=== PATIENT | female | born 1995 | race Caucasian/White ===

== ENCOUNTER 2023-06-25 00:36 | Day surgery (SDC) | payer MEDICARE, SELFPAY ==
[2023-06-15 12:39] VITALS: BMI 19.4
--- NOTE | 2023-06-15 12:47 | PC.NURSE ---
Report to the Outpatient Waiting Room, entrance under the green pavilion located off [facility], at time 6:00 on date 06/25/23. Planned Procedure Time: 7:30. Time changes happen often and if your time is changed the preop area will call you the afternoon before. - You and your visitor will be asked to self-screen and do not enter if you have any COVID symptoms. - A mask is optional within the hospital at this time. Patients may have clear liquids (water, carbonated beverages, clear teas, apple juice) until 3 hours prior to surgery (4:30) with a maximum of 20 ounces. - No food from midnight until time of surgery Take the following medications with a SIP of water the morning of surgery: BUPROPION DO NOT STOP ANY OF YOUR OTHER PRESCRIPTION MEDICATIONS PRIOR TO SURGERY ?EXCEPT THE FOLLOWING Medications to discontinue per physician: N/A Date to take last dose: N/A Please no make-up, nail belarusian, hairspray, perfume, deodorant, or body powder the day of surgery. No jewelry (including any body piercings) or valuables the day of surgery, leave them at home. Please take a shower or bath the night before, or the morning of, surgery with an antibacterial soap. Wear comfortable, loose fitting clothing. - Jewelry must be removed prior to entering the operating room. Rings and piercings that are not removed may be cut off. - The hospital will not accept responsibility for valuables. - Please leave all valuables, including medications, at home the day of surgery. If you are going home after surgery, a licensed intermodal truck driver must drive you home. - NO public transportation without another adult if you receive anesthesia. - We recommend that an adult stay with you for 24 hours following discharge. - We also recommend that you do not drive, make important decision, drink alcoholic beverages, or take any drugs that were not prescribed by your health care provider for at least 24 hours after your discharge time. Follow any additional instructions given to you from your surgeon. If you or anyone in your household have experienced Covid symptoms in the past week, please notify your surgeon or the nurse liaison at the phone number below for possible testing. Telephone instructions given to ADDISON VAZQUEZ and asked if any additional questions and then verbalized understanding. Patient advised to call surgeon office or pre surgery nurse liaison [phone] if any additional questions.
--- NOTE | 2023-06-22 16:07 | P.HP_ITS ---
H&P: HPI History of Present Illness Date/Time: 06/22/23 16:07 Chief Complaint: The suspected uterine polyp Narrative: 28-year-old removed female the Depo-Provera with a regular excessive bleeding. She has a history of a polypectomy many years ago. Ultrasound was performed this removal to do an exam in the thickened tissue was seen consistent with probable recurrence of a polyp. She will undergo hysteroscopy dilatation curettage and polypectomy. Risks and benefits reviewed including inclusive of aspiration pneumonia, bleeding and transfusion, perforation injury to bowel, bladder, ureters, or other internal organs with need for open laparotomy. She received the ACOG handout entitled hysteroscopy as well as dilatation curettage. She had all questions answered. She asked to proceed [facility] Social History Social History Smoking status: Never smoker Alcohol intake: never Substance use: never Substance use type: does not use Living arrangements: with family Spiritual care concerns: No Meds Home Medications and Allergies Home Medications Medication Instructions Recorded Confirmed Type bupropion HCl 150 mg 24 hr tablet, 150 mg PO DAILY 06/15/23 06/15/23 History extended release medroxyprogesterone 150 mg/mL 150 mg IM [id number] 06/15/23 06/15/23 History intramuscular suspension Allergies Allergy/AdvReac Type Severity Reaction Status Date / Time chlorhexidine Allergy Intermediate RASH Verified 06/15/23 12:36 oxycodone Allergy Intermediate Vomiting Verified 06/15/23 12:36 Sulfa (Sulfonamide Allergy Mild HIVES Unverified 06/15/23 12:36 Antibiotics) Exam Const: General: cooperative and comfortable Nutritional Appearance: average body habitus Orientation/consciousness: oriented to person, oriented to place and oriented to time HENMT: Head: normal to inspection Resp: Effort & Inspection: normal respiratory effort Cardio: Rate: regular rate Rhythm: regular rhythm Heart sounds: S1 normal heart sound present and S2 normal heart sound present GI: Inspection: normal to inspection : External Female Exam: normal external appearance ( remainder of exam be done under Anesthesia) Assessment and Plan Assessment and plan (1) Excessive bleeding: Code(s): R58 - Hemorrhage, not elsewhere classified Status: Acute Plan hysteroscopy/ dilatation curettage/polypectomy
--- NOTE | 2023-06-25 06:33 | WPDHPUPDATE1 ---
History and Physical Update Update Date/Time: 06/25/23 06:33 History and Physical has been reviewed, including an updated exam of the patient. There are NO changes in the patient's condition. Risks, benefits, and alternatives have been discussed and questions answered. Patient agrees to proceed with procedure.
--- NOTE | 2023-06-25 06:46 | P.PNAN_ITS ---
Anes - Initial Pre Proc Eval Procedure: Operation Date: 06/25/23 07:30 Proposed Procedures p Hysteroscopy, Dilation and Curettage, Polypectomy - Idris Bunn MD Date/Time: 06/25/23 06:46 Surgeon: Idris Bunn MD Pre Op Diagnosis: irreg bleeding, uterine polyp Patient Data Age: 28 Gender: F Height: 1.63 m Weight: 51.3 kg Allergies Allergy/AdvReac Type Severity Reaction Status Date / Time chlorhexidine Allergy Intermediate RASH Verified 06/15/23 12:36 oxycodone Allergy Intermediate Vomiting Verified 06/15/23 12:36 Sulfa (Sulfonamide Allergy Mild HIVES Unverified 06/15/23 12:36 Antibiotics) Home Medications Medication Instructions Recorded Confirmed Type bupropion HCl 150 mg 24 hr tablet, 150 mg PO DAILY 06/15/23 06/15/23 History extended release medroxyprogesterone 150 mg/mL 150 mg IM [id number] 06/15/23 06/15/23 History intramuscular suspension ibuprofen 600 mg tablet 600 mg PO QID PRN pain #20 tabs 06/25/23 Rx Patient hx anesthesia problems: none Family hx anesthesia problems: none Results Review: All pre-operative results and documents have been reviewed as part of the pre- operative evaluation. [facility], [facility] Social History Social History Smoking status: Never smoker Alcohol intake: never Substance use: never Substance use type: does not use Living arrangements: with family Spiritual care concerns: No Anes - Eval Final PreProcedure Day of Procedure 06/25/23 06:46 Patient weight: normal Heart: regular rate and rhythm Lungs: clear to auscultation Airway: Mallampati scale class II Neurological: alert and oriented Last oral intake: >/= 8 hours ASA classification: II Emergent: no Anesthetic plan: proceed Anesthesia type and monitoring: general GIVS and standard monitoring Results Review: All pre-operative results and documents have been reviewed as part of the pre- operative evaluation Pt w mild CP, uses cane sometimes for stability. . Informed Consent: The patient's anesthetic plan and its attendant risks and benefits were discussed with the patient/family/POA. Questions were solicited and answers provided to the satisfaction of the patient/family/POA.
[2023-06-25 06:50] LABS: Hematocrit 42.8 % (37.0-47.0)
[2023-06-25 07:00] VITALS: BP 134/87; PULSE 109; RESP 20; TEMP 36.8; O2SAT 100
[2023-06-25] MEDS: ACETAMINOPHEN 500 MG TABLET 1000 MG PO (07:00)
[2023-06-25] MEDS: LACTATED RINGERS 1,000 ML 30 ML IV CONT (07:00)
[2023-06-25 07:18] LABS: Beta HCG Quantitative < 2.39 mIU/ML
[2023-06-25] MEDS: LIDOCAINE HCL 1% LOCAL INJ 10 ML VIAL INFILTRATE (07:40)
--- NOTE | 2023-06-25 07:49 | W.PM.PROC2 ---
Procedure Note - Detailed Date of Procedure 06/25/23 Pre-op Diagnosis irreg bleeding, uterine polyp Post-op Diagnosis Same Procedure Performed Hysteroscopy / polypectomy/dilatation curettage Surgeon Idris Bunn MD Anesthesia MAC and Local Indications this is a 20-year-old female with thickened endometrial when Findings 2 small stone looking pieces in the uterus with thickened endometrium Description of Procedure patient was prepped and draped in the normal sterile fashion placed in the dorsal lithotomy position. Under excellent IV sedation weighted speculum placed in posterior fornix. Anterior lip the cervix grasped with single-tooth tenaculum. 2.5cc 1% xylocaine anesthesia placed at 2, 4, 8, 10:00 a.m. of the cervix. Uterus sounded to 8cm. Serial dilatation with fragmented dilators performed followed by passage of the of the day hysteroscope system. Two phleboliths looking lesions were seen. These were removed with polyp forceps. The polypoid looking lesion was then scraped over the entire 360? with the prior rotator. The instruments withdrawn blood loss estimated 5cc. All sponge, needle, instrument counts were correct there were no immediate complications Estimated Blood Loss 5 Drains No Packing No Pathology Yes Complications No immediate complications Condition Stable Disposition PACU
[2023-06-25 07:51] VITALS: BP 111/84; PULSE 110; RESP 12; O2SAT 100
[2023-06-25 08:15] VITALS: BP 102/77; PULSE 85; RESP 20
[2023-06-25 08:45] VITALS: BP 121/79; PULSE 93; RESP 20
== END 2023-06-25 08:52 | disposition home or self-care (01) ==
PROVIDERS: Anesthesiology; PCP Family Medicine Adolescent Medicine; Visit Provider Obstetrics & Gynecology
PROC: 0U5B8ZZ Destruction of Endometrium, Via Natural or Artificial Opening Endoscopic (ICD-10-PCS; CPT 58563; principal; 2023-06-25 07:30)
DX: N93.9 Abnormal uterine and vaginal bleeding, unspecified (principal); N85.8 Other specified noninflammatory disorders of uterus
CPT/HCPCS: 58558; 36415; 84702; 85014; 85018; 88305; A9270; J2250; J2704; J3010; J7120

== ENCOUNTER 2024-05-14 15:00 | Inpatient (IN) | payer MEDICARE, SELFPAY ==
[2024-05-14] VITALS (13 sets, daily range): BP systolic 116–135; BP diastolic 71–89; PULSE 68–103; RESP 15–18; TEMP 36.2–37.1; O2SAT 98–100; BMI 23.6
--- NOTE | ~2024-05-14 | XR_ITS ---
EXAMINATION: XR abdomen/kub 1V DATE: 05/15/2024 08:27 INDICATION: Left ureteral stone. TECHNIQUE: A supine view of the abdomen on 2 radiographs was obtained. COMPARISON: CT abdomen and pelvis 05/14/2024 FINDINGS: There are no dilated loops of bowel. There is a 3 mm stone in right kidney. There is a 4 mm stone in proximal left ureter. There is contrast in the bladder. IMPRESSION: 1. 4 mm stone in proximal left ureter. 2. 3 mm right kidney stone. Reviewed, dictated and finalized at location B.
--- NOTE | ~2024-05-14 | CT_ITS ---
EXAMINATION: CT abdomen pelvis w con DATE: 05/14/2024 19:18 INDICATION: LOWER ABDOMINAL PAIN TECHNIQUE: Computed tomography (CT) of the abdomen and pelvis was performed with 100 mL Omnipaque-350 intravenous contrast. Automated exposure control and iterative reconstruction technique were employe d. The dose-length product was 280.58 mGy-cm. COMPARISON: None. FINDINGS: Lower thorax: Unremarkable Liver: Normal. Biliary/Gallbladder: Gallbladder is normal. No bile duct dilation. Pancreas: No mass or duct dilation. Spleen: Normal. Adrenals:No mass. Kidneys: Delayed left nephrogram. Mild left pelviectasis and caliectasis. 5 mm calcification at the l eft UPJ. Punctate bilateral nonobstructing calculi. No suspicious mass. No right hydronephrosis. GI tract: Small hiatal hernia. Linear hyperdense focus at the GE junction may represent a surgical cl ip from prior surgery or ingested material. Mild gastroesophageal and gastric wall edema. No small or large bowel dilation. Mild scattered areas of colonic wall edema. Appendix not confidently identifie d. No right lower quadrant inflammatory process. Diverticulosis without diverticulitis. Mesentery/Peritoneum: No ascites, mass, or free air. Retroperitoneum: No mass. Pelvis: Normal uterus and right ovary. Left ovary is not confidently identified.. Soft Tissues: Soft tissues and body wall unremarkable. Bones: No acute osseous finding. IMPRESSION: 5 mm left UPJ stone causing mild obstructive uropathy. Scattered areas of colonic wall edema may reflect infectious, inflammatory, or ischemic colitis. Reviewed, dictated and finalized at location K.
--- NOTE | ~2024-05-14 | XR_ITS ---
EXAMINATION: XR retrograde pyelo w/stent LT DATE: 05/16/2024 11:46 INDICATION: Left ureteral stone. TECHNIQUE: 3 intraoperative fluoroscopic views of the abdomen and pelvis were obtained. I was not pre sent. Fluoroscopy exposure time was 23 seconds. COMPARISON: CT abdomen and pelvis 05/14/2024 FINDINGS: The left-sided retrograde pyelogram is unremarkable. There is a left internal ureteral sten t in expected position. IMPRESSION: 1. Left internal ureteral stent in expected position. Reviewed, dictated and finalized at location B.
--- OUTSIDE RECORDS SUMMARY | 2024-05-14 15:03 | XMS_ITS | Continuity of Care Document ---
Author Organization [facility] Address [address] [place] [address] Phone Care Team Providers Care Second Worker Name Role Phone Cipriano Meyer Unavailable Unavailable Advance Directives Directive Yes / No Effective Date File Name No Information Encounters Encounter Description Practice Location Reason(s) For Visit Diagnoses Date Provider Providers Copied on Encounter [facility], [address] [place] [address] [address], [place], [place], [id number], [place] tel:[phone] [facility] No Information 0 1-200 4 Doisy Edward. [address] , [address], [place], [address], [place]. tel:[phone] Family History Family Member Type Diagnosis Age At Onset No Information Payers Payer name Insurance type Covered democrat ID Authoriza tion(s) No Information Social History Type Description Quantity Date Captured Comments Sex Female Smoking Status No Information Chief Complaint And Reason For Visit No Information Reason For Referral Reason For Referral No Information History Of Present Illness Encounter Date Complaint History Of Prese nt Illness No Information Functional Status Date Functional Assessmen t No Information Instructions Date Instruction Additional Infor mation No Information Assessments Type Assessment Date No Information Patient Care Teams Name Effective Dates (start - stop) Status Members No Information
--- NOTE | 2024-05-14 15:12 | ED_ITS ---
HPI - Abdominal Pain General Chief Complaint: Abdominal Pain <Gustavo Crane MD - Last Filed: 05/14/24 18:55> Stated Complaint: Abd pain, vomiting <Gustavo Crane MD - Last Filed: 05/14/24 18:55> Time Seen by Provider: 05/14/24 15:11 <Gustavo Crane MD - Last Filed: 05/14/24 18:55> Source: patient <Gustavo Crane MD - Last Filed: 05/14/24 18:55> Mode of arrival: ambulatory <Gustavo Crane MD - Last Filed: 05/14/24 18:55> Limitations: no limitations <Gustavo Crane MD - Last Filed: 05/14/24 18:55> History of Present Illness HPI narrative: 29 YEARS OLD WHITE FEMALE CAME TO THE ED BY PRIVATE CAR COMPLAINING OF FEELING SICK TODAY SINCE YELLOW MORNING ASSOCIATED WITH LOWER ABDOMINAL PAIN, AND VOMITING. SHE DENIES ANY FEVER, CHILLS OR UPPER RESPIRATORY SYMPTOMS. ON <Gustavo Crane MD - Last Filed: 05/14/24 18:55> Related Data Home Medications: Home Medications ?Medication ?Instructions ?Recorded ?Confirmed ?Last Taken ?Type bupropion HCl 150 mg 24 hr tablet, 150 mg PO DAILY 06/15/23 06/25/23 06/25/23 History extended release medroxyprogesterone 150 mg/mL 150 mg IM [id number] 06/15/23 06/15/23 Unknown History intramuscular suspension <Gustavo Crane MD - Last Filed: 05/14/24 18:55> Allergies/Adverse Reactions: Allergies Allergy/AdvReac Type Severity Reaction Status Date / Time chlorhexidine Allergy Intermediate RASH Verified 05/14/24 15:02 oxycodone Allergy Intermediate Vomiting Verified 05/14/24 15:02 Sulfa (Sulfonamide Allergy Mild HIVES Verified 05/14/24 15:02 Antibiotics) <Gustavo Crane MD - Last Filed: 05/14/24 18:55> Review of Systems 2 Review of Systems: All systems reviewed & are unremarkable except as noted in HPI and below <Gustavo Crane MD - Last Filed: 05/14/24 18:55> PMFSH Social History Social History: Social History Smoking status: Never smoker Alcohol intake: never Substance use: never Substance use type: does not use Living arrangements: with family Spiritual care concerns: No <Gustavo Crane MD - Last Filed: 05/14/24 18:55> Exam 2 Narrative: GENERAL APPEARANCE: WELL-DEVELOPED, WELL-NOURISHED, HOLDING VOMITING BAG IN HANDS, LOOKS ILL SKIN: NORMAL COLOR HEAD: NORMOCEPHALIC, NONTRAUMATIC EYES: CLEAR CONJUNCTIVA ENT: OROPHARYNX NORMAL, EARS NORMAL, NOSE NORMAL NECK: SUPPLE, NONTENDER CHEST AND RESPIRATORY: AIRWAY PATENT, NO RESPIRATORY DISTRESS, NO ACCESSORY MUSCLE USE HEART: REGULAR RATE/RHYTHM ABDOMEN: SOFT, NONTENDER, NO ORGANOMEGALY, QUIET BOWEL SOUNDS VASCULAR: NORMAL PERIPHERAL PULSES, NORMAL CAPILLARY REFILL. MUSCULOSKELETAL: NORMAL RANGE OF MOTION, NONTENDER BACK NEUROLOGIC: ALERT AND ORIENTED ?3, SUPERVISOR TYPE BAR AND SEGMENT IS NORMAL TESTED, NO GROSS MOTOR DEFICIT <Gustavo Crane MD - Last Filed: 05/14/24 18:55> Course Course Emergency Course: Signed out to me pending CT for this 29F p/w n/v and abd pain. does have 5mm L ureteral stone with some hydro, CT reviewed by myself. No UTI on UA; pt on re-eval states she feels much better, findings d/w pt, strict return precautions with rx w/ zofran, pain meds, flomax, f/u to uro; pt agreeable to this plan. // Patient's father who brought her here today unfortunately is being admitted to the ICU. Patient special needs and cannot be safely independent/discharged. Discussed with hospitalist for admission. Will consult Urology, Dr. Tello/urology team happy to consult on her, this point no surgical intervention required were plan at this time but they will follow patient while she is admitted. <Joyce Chavez MD - Last Filed: 05/14/24 20:55> Vital Signs Vital signs: Vital Signs Temperature 97.2 F L 05/14/24 15:05 Pulse Rate 88 05/14/24 15:05 Respiratory Rate 16 05/14/24 15:05 Blood Pressure 135/82 05/14/24 15:05 Pulse Oximetry 100 05/14/24 15:05 Temperature 97.2 F L 05/14/24 15:05 Pulse Rate 88 05/14/24 15:05 Respiratory Rate 16 05/14/24 15:05 Blood Pressure 135/82 05/14/24 15:05 Pulse Oximetry 100 05/14/24 15:05 <Gustavo Crane MD - Last Filed: 05/14/24 18:55> Vital Signs Temperature 97.2 F L 05/14/24 15:05 Pulse Rate 88 05/14/24 15:05 Respiratory Rate 16 05/14/24 15:05 Blood Pressure 135/82 05/14/24 15:05 Pulse Oximetry 100 05/14/24 15:05 Temperature 97.2 F L 05/14/24 15:05 Pulse Rate 88 05/14/24 15:05 Respiratory Rate 16 05/14/24 15:05 Blood Pressure 135/82 05/14/24 15:05 Pulse Oximetry 100 05/14/24 15:05 <Joyce Chavez MD - Last Filed: 05/14/24 20:55> MDM - Abdominal Pain MDM Narrative Medical decision making narrative: PATIENT CAME WITH VOMITING AND LOWER ABDOMINAL PAIN VITAL SIGNS ARE STABLE PHYSICAL EXAMINATION SHOWING ILL LOOKING PATIENT, ABDOMINAL EXAM IS BENIGN DIFFERENTIAL DIAGNOSIS UPPER RESPIRATORY VIRAL INFECTION, URINARY TRACT INFECTION, APPENDICITIS, CHOLECYSTITIS, COLITIS, DIVERTICULITIS, ABDOMINAL WALL PAIN. BLOOD WORKUP TODAY INCLUDES CBC, CMP, LIPASE SHOWED WBC 12.7, OTHERWISE INSIGNIFICANT ABNORMALITY RESPIRATORY PANEL CAME BACK NEGATIVE FOR FLU COVID RSV URINALYSIS SHOWED CT ABDOMEN AND PELVIS WITH IV CONTRAST SHOWED PATIENT WAS SIGNED TO THE COMING PHYSICIAN AT SHIFT CHANGE, WAITING FOR LABS, URINALYSIS AND CT SCAN OF THE ABDOMEN AND PELVIS <Gustavo Crane MD - Last Filed: 05/14/24 18:55> Differential Diagnosis Differential diagnosis: Likely other ( ABOVE) <Gustavo Crane MD - Last Filed: 05/14/24 18:55> Medical Records Attestation: I reviewed the patient's medical records. <Gustavo Crane MD - Last Filed: 05/14/24 18:55> Lab Data Attestation: I reviewed the patient's lab results. <Gustavo Crane MD - Last Filed: 05/14/24 18:55> Result diagrams: 05/14/24 16:18 05/14/24 16:18 <Gustavo Crane MD - Last Filed: 05/14/24 18:55> Labs: Lab Results 05/14/24 05/14/24 05/14/24 Range/Units 16:18 18:51 18:55 WBC 12.7 H (4.5-10.0) K/mm3 RBC 4.60 (4.2-5.4) M/mm3 Hgb 14.3 (12.0-15.0) g/dL Hct 42.9 (37.0-47.0) % MCV 93.3 (80-100) fl MCH 31.1 (26-34) pg MCHC 33.3 (32-36) g/dl RDW 11.7 (11.5-14.5) % Plt Count 198 (150-375) k/mm3 MPV 11.6 H (7.4-10.4) fl Immature Gran % (Auto) 0.3 (0-0.5) % Neut % (Auto) 84.7 H (45.5-73.1) % Lymph % (Auto) 10.4 L (18.3-44.2) % [place] % (Auto) 4.2 (2.6-8.5) % Eos % (Auto) 0.1 (0-4.4) % Baso % (Auto) 0.3 (0.2-1.2) % Lymph # (Auto) 1.32 (0.9-3.2) K/mm3 [place] # (Auto) 0.5 (0.1-0.6) K/mm3 Eos # (Auto) 0.0 (0-0.3) K/mm3 Baso # (Auto) 0.0 (0.0-0.1) K/mm3 Abs Immat Gran (auto) 0.04 H (0.00-0.031) K/mm3 Absolute Neuts (auto) 10.7 H (1.3-6.7) K/mm3 Absolute Nucleated RBC 0.000 (0.0-0.012) K/mm3 Nucleated RBC % 0.0 (0.0-0.2) % Sodium 145 (137-145) mmol/L Potassium 3.9 (3.4-5.0) mmol/L Chloride 108 H (98-107) mmol/L Carbon Dioxide 21 L (22-30) mmol/L Anion Gap 16 H (4-12) mmol/L BUN 12 (7-17) mg/dL Creatinine 0.83 (0.7-1.0) mg/dL Estim Creat Clear Calc 75 ml/min Estimated GFR > 60 (59 - ) Glucose 101 (65-110) mg/dL Calcium 9.9 (8.4-10.2) mg/dL Total Bilirubin 0.7 (0.2-1.3) mg/dL AST 26 (14-36) U/L ALT 24 (6-35) U/L Alkaline Phosphatase 109 (38-126) U/L Total Protein 8.0 (6.3-8.2) g/dL Albumin 5.0 (3.5-5.1) g/dL Lipase 54 (23-300) U/L Urine Color Yellow (Yellow) Urine Appearance Cloudy H (Clear) Urine pH 7.5 (5.0-9.0) Ur Specific [place] 1.014 (1.001-1.035) Urine Protein Trace (Negative) mg/dL Urine Glucose (UA) Negative (Negative) mg/dL Urine Ketones 3+ H (Negative) mg/dL Ur Blood (Man) 3+ H (Negative) Urine Nitrate Negative (Negative) Urine Bilirubin Negative (Negative) Urine Urobilinogen 1.0 (<2.0) mg/dL Leukocyte Esterase Rfl Trace H (Negative) VICKI/UL Urine RBC >100 H (0-2) /hpf Urine WBC 0-5 (0-3) /hpf Ur Squamous Epith Cells Occasional (Few) /hpf Urine Bacteria Rare /hpf Urine Casts 0-2 POC Urine HCG, Qual Negative (Negative) Influenza A (RT-PCR) Negative (Negative) Influenza B (RT-PCR) Negative (Negative) RSV (RT-PCR) Negative (Negative) SARS-CoV-2 RNA (RT-PCR) Negative (Negative) <Gustavo Crane MD - Last Filed: 05/14/24 18:55> Lab Results 05/14/24 05/14/24 05/14/24 Range/Units 16:18 18:51 18:55 WBC 12.7 H (4.5-10.0) K/mm3 RBC 4.60 (4.2-5.4) M/mm3 Hgb 14.3 (12.0-15.0) g/dL Hct 42.9 (37.0-47.0) % MCV 93.3 (80-100) fl MCH 31.1 (26-34) pg MCHC 33.3 (32-36) g/dl RDW 11.7 (11.5-14.5) % Plt Count 198 (150-375) k/mm3 MPV 11.6 H (7.4-10.4) fl Immature Gran % (Auto) 0.3 (0-0.5) % Neut % (Auto) 84.7 H (45.5-73.1) % Lymph % (Auto) 10.4 L (18.3-44.2) % [place] % (Auto) 4.2 (2.6-8.5) % Eos % (Auto) 0.1 (0-4.4) % Baso % (Auto) 0.3 (0.2-1.2) % Lymph # (Auto) 1.32 (0.9-3.2) K/mm3 [place] # (Auto) 0.5 (0.1-0.6) K/mm3 Eos # (Auto) 0.0 (0-0.3) K/mm3 Baso # (Auto) 0.0 (0.0-0.1) K/mm3 Abs Immat Gran (auto) 0.04 H (0.00-0.031) K/mm3 Absolute Neuts (auto) 10.7 H (1.3-6.7) K/mm3 Absolute Nucleated RBC 0.000 (0.0-0.012) K/mm3 Nucleated RBC % 0.0 (0.0-0.2) % Sodium 145 (137-145) mmol/L Potassium 3.9 (3.4-5.0) mmol/L Chloride 108 H (98-107) mmol/L Carbon Dioxide 21 L (22-30) mmol/L Anion Gap 16 H (4-12) mmol/L BUN 12 (7-17) mg/dL Creatinine 0.83 (0.7-1.0) mg/dL Estim Creat Clear Calc 75 ml/min Estimated GFR > 60 (59 - ) Glucose 101 (65-110) mg/dL Calcium 9.9 (8.4-10.2) mg/dL Total Bilirubin 0.7 (0.2-1.3) mg/dL AST 26 (14-36) U/L ALT 24 (6-35) U/L Alkaline Phosphatase 109 (38-126) U/L Total Protein 8.0 (6.3-8.2) g/dL Albumin 5.0 (3.5-5.1) g/dL Lipase 54 (23-300) U/L Urine Color Yellow (Yellow) Urine Appearance Cloudy H (Clear) Urine pH 7.5 (5.0-9.0) Ur Specific [place] 1.014 (1.001-1.035) Urine Protein Trace (Negative) mg/dL Urine Glucose (UA) Negative (Negative) mg/dL Urine Ketones 3+ H (Negative) mg/dL Ur Blood (Man) 3+ H (Negative) Urine Nitrate Negative (Negative) Urine Bilirubin Negative (Negative) Urine Urobilinogen 1.0 (<2.0) mg/dL Leukocyte Esterase Rfl Trace H (Negative) VICKI/UL Urine RBC >100 H (0-2) /hpf Urine WBC 0-5 (0-3) /hpf Ur Squamous Epith Cells Occasional (Few) /hpf Urine Bacteria Rare /hpf Urine Casts 0-2 POC Urine HCG, Qual Negative (Negative) Influenza A (RT-PCR) Negative (Negative) Influenza B (RT-PCR) Negative (Negative) RSV (RT-PCR) Negative (Negative) SARS-CoV-2 RNA (RT-PCR) Negative (Negative) <Joyce Chavez MD - Last Filed: 05/14/24 20:55> Imaging Data Radiologist's impression: ITS Impressions Abdomen/Pelvis CT 05/14/24 19:29 IMPRESSION: 5 mm left UPJ stone causing mild obstructive uropathy. Scattered areas of colonic wall edema may reflect infectious, inflammatory, or ischemic colitis. <Gustavo Crane MD - Last Filed: 05/14/24 18:55> ITS Impressions Abdomen/Pelvis CT 05/14/24 19:29 IMPRESSION: 5 mm left UPJ stone causing mild obstructive uropathy. Scattered areas of colonic wall edema may reflect infectious, inflammatory, or ischemic colitis. <Joyce Chavez MD - Last Filed: 05/14/24 20:55> Critical Care Time Critical Care Time Critical Care Time: No <Gustavo Crane MD - Last Filed: 05/14/24 18:55> Discharge Plan Discharge Clinical Impression: Ureterolithiasis <Gustavo Crane MD - Last Filed: 05/14/24 18:55> Patient Disposition: Still a Patient <Gustavo Crane MD - Last Filed: 05/14/24 18:55> Condition: Stable <Gustavo Crane MD - Last Filed: 05/14/24 18:55> Patient Language: Kiswahili <Gustavo Crane MD - Last Filed: 05/14/24 18:55> Prescriptions: New tamsulosin [Flomax] 0.4 mg capsule 0.4 mg PO DAILY Qty: 14 0RF ketorolac 10 mg tablet 10 mg PO Q6H PRN (Reason: pain) Qty: 20 0RF Rx Instructions: maximum total duration of 5 days from all oral, intranasal, or parenteral formulations ondansetron 4 mg tablet,disintegrating 4 mg PO Q8H PRN (Reason: nausea and vomiting) Qty: 10 0RF No Action medroxyprogesterone 150 mg/mL suspension 150 mg IM [id number] bupropion HCl 150 mg tablet extended release 24 hr 150 mg PO DAILY ibuprofen 600 mg tablet 600 mg PO QID PRN (Reason: pain) Qty: 20 0RF <Gustavo Crane MD - Last Filed: 05/14/24 18:55> Follow-up/Referrals: Natan Dorantes MD [Primary Care Provider] - <Gustavo Crane MD - Last Filed: 05/14/24 18:55>
--- OUTSIDE RECORDS SUMMARY | 2024-05-14 15:17 | XMS_ITS | Continuity of Care Document ---
Author Organization [facility] [place] [address] [place] [address] Phone Care Team Providers Care Global Analytics Head Name Role Phone Cipriano Meyer Unavailable Unavailable Advance Directives Directive Yes / No Effective Date File Name No Information Encounters Encounter Description Practice Location Reason(s) For Visit Diagnoses Date Provider Providers Copied on Encounter [facility], [address] [place] [address] [address], [place], [place], [id number], [place] tel:[phone] [facility] No Information 0 1-200 4 Doisy Edward. [address] , [address], [place], [address], [place]. tel:[phone] Family History Family Member Type Diagnosis Age At Onset No Information Payers Payer name Insurance type Covered alliance party ID Authoriza tion(s) No Information Social History [...]
[2024-05-14] MEDS: SODIUM CHLORIDE 0.9% IV 1,000 ML 999 ML IV CONT (16:17)
[2024-05-14] MEDS: ONDANSETRON INJ 4 MG/2 ML VIAL IV PUSH (16:19)
[2024-05-14] MEDS: HYDROmorphone HCL INJ (*CRX) 1 MG/ML SYR 0.5 MG IV PUSH (16:20)
[2024-05-14 16:24] LABS: Basophils Percent Auto 0.3 % (0.2-1.2); Eosinophils Percent Auto 0.1 % (0-4.4); Hematocrit 42.9 % (37.0-47.0); Hemoglobin 14.3 g/dL (12.0-15.0); Immature Granulocyte Absolute 0.04 K/mm3 (0.00-0.031); Immature Granulocyte Percent A 0.3 % (0-0.5); Lymphocytes Absolute Auto 1.32 K/mm3 (0.9-3.2); Lymphocytes Percent Auto 10.4 % (18.3-44.2); Mean Corpuscular HGB Conc 33.3 g/dl (32-36); Mean Corpuscular Hemoglobin 31.1 pg (26-34); Mean Corpuscular Volume 93.3 fl (80-100); Mean Platelet Volume 11.6 fl (7.4-10.4); Monocytes Absolute Auto 0.5 K/mm3 (0.1-0.6); Monocytes Percent Auto 4.2 % (2.6-8.5); Neutrophils Absolute Auto 10.7 K/mm3 (1.3-6.7); Neutrophils Percent Auto 84.7 % (45.5-73.1); Platelet Count Result 198 k/mm3 (150-375); Red Cell Distribution Width 11.7 % (11.5-14.5); White Blood Count 12.7 K/mm3 (4.5-10.0)
[2024-05-14 16:34] LABS: Alanine Aminotransferase 24 U/L (6-35); Alkaline Phosphatase 109 U/L (38-126); Anion Gap 16 mmol/L (4-12); Aspartate Amino Transferase 26 U/L (14-36); Bilirubin,Total 0.7 mg/dL (0.2-1.3); Blood Urea Nitrogen 12 mg/dL (7-17); Calcium 9.9 mg/dL (8.4-10.2); Carbon Dioxide 21 mmol/L (22-30); Chloride 108 mmol/L (98-107); Estimated CRCL calculation 75 ml/min; Estimated Glomerular Filt Rate > 60; Glucose 101 mg/dL (65-110); Lipase 54 U/L (23-300); Potassium 3.9 mmol/L (3.4-5.0); Sodium 145 mmol/L (137-145)
[2024-05-14 16:59] LABS: Influenza A QL RT-PCR Negative (Negative); Influenza B QL RT-PCR Negative (Negative); RSV RNA, RT-PCR Negative (Negative); SARS-CoV-2 RNA PCR Negative (Negative)
--- NOTE | 2024-05-14 18:27 | PC.NURSE ---
Approx one hour ago, pt was instructed that we still need urine specimen prior to CT. Pt was walked to , offered a hat for the toilet to catch urine specimen. Pt declined, states she would just use the urine cup. Pt reported she was unable to catch any urine with the cup, so no urine was able to be collected. Pt was taken to CT after approx 800 ml of IV fluids infused, but IV was suddenly not flushing well, so pt returned to ED room. Pt requested to be hooked back up so that she can get more pain medication . RN asked pt to clarify. Pt point to the vital signs monitor and stated that she got nauseous when I unplugged her from there, so she would like to be reconnected. Pt reconnected to monitor. IV removed, no swelling or pain noted, IV just not flushing well and not giving good blood return. Second IV started, CT called to update. CT came to get patient for imaging. Pt refused to go to CT until she gets more nausea medication. MD Crane made aware.
[2024-05-14] MEDS: METOCLOPRAMIDE HCL INJ 10 MG/2 ML VIAL IV PUSH (18:45)
[2024-05-14] MEDS: diphenhydrAMINE HCl INJ 50 MG/ML VIAL IV PUSH (18:48)
[2024-05-14 18:57] LABS: BEDSIDEPREGUCG Negative (Negative)
[2024-05-14 19:16] LABS: Add Urine Microscopic? YES; Appearance Urine Cloudy (Clear); Bacteria Urine Rare /hpf; Bilirubin Urine Negative (Negative); Blood Urine 3+ (Negative); Color Urine Yellow (Yellow); Glucose Urine UA Negative (Negative); Ketones Urine 3+ mg/dL (Negative); Leukocyte Esterase Ur Trace LEU/UL (Negative); Nitrate Urine Negative (Negative); Non Pathogenic Casts 0-2; Protein Urine Trace mg/dL (Negative); RBC Urine >100 /hpf (0-2); Specific Grav Ur 1.014 (1.001-1.035); Squamous Epithelial Cell Urine Occasional /hpf (Few); WBC Urine 0-5 /hpf (0-3); pH Urine 7.5 (5.0-9.0)
--- NOTE | 2024-05-14 20:48 | P.HP_ITS ---
H&P: HPI History of Present Illness Date/Time: 05/14/24 20:48 Chief Complaint: Abdominal pain Narrative: This is a 29-year-old female with a significant past medical history of cerebral palsy, anxiety, depression, left oophorectomy who presented to the hospital with complaints of abdominal pain and vomiting since this morning. She was accompanied by her father who is her a and p technician however he was found to be ill himself and admitted to ICU here. Patient states that she started to have abdominal pain with associated nausea and vomiting on Wednesday and it persisted into today. She came in for further evaluation of her symptoms. Workup in the hospital included an abdomen/pelvis CT which showed 5 mm left You PUJ stone causing mild obstructive uropathy, scattered area of colonic wall edema which may reflect infectious, inflammatory, or ischemic colitis. Initial labs showed a white blood cell count of 12.7, bicarb 21, anion gap 16, lipase was normal at 54. UA was obtained which showed cloudy urine appearance, 3+ urine ketone, 3+ urine blood, trace leukocyte, greater than 100 urine RBC, rare bacteria seen. Urine test was negative. Respiratory panel was negative for influenza A and B, RSV, COVID. Patient was given 1 L of normal saline, Reglan, Zofran, Benadryl, Dilaudid, Toradol, and a dose of Flomax while in the ED. She was going to be discharged however it was deemed unsafe due to the caregiver's illness and being admitted to ICU. Urology was consulted. She is being admitted for safe discharge planning. Care coordination consulted. 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 Anxiety Depression Surgical History Surgical History H/O oophorectomy Family History Family History Father Asthma Social History Social History Smoking status: Never smoker Alcohol intake: never Substance use: never Substance use type: does not use Do You Feel Safe in your Home?: Yes Lack of Transportation: No Lack of Food: Never True Current Housing: I Have Housing Concerned About Future Housing: No Difficulty Paying Gas/Electric Bills: No Difficulty Paying for Meds: No Currently Unemployed: No Education: High School Diploma/GED Difficulty w/ Childcare or Family Care: No Living arrangements: with family Spiritual care concerns: Yes Meds Home Medications and Allergies Home Medications ?Medication ?Instructions ?Recorded ?Confirmed ?Type bupropion HCl 150 mg 24 hr tablet, 150 mg PO DAILY 06/15/23 05/14/24 History extended release medroxyprogesterone 150 mg/mL 150 mg IM [id number] 06/15/23 05/14/24 History intramuscular suspension ketorolac 10 mg tablet 10 mg PO Q6H PRN pain #20 tabs 05/14/24 Rx ondansetron 4 mg disintegrating 4 mg PO Q8H PRN nausea and 05/14/24 Rx tablet vomiting #10 tabs tamsulosin 0.4 mg capsule (Flomax) 0.4 mg PO DAILY #14 caps 05/14/24 Rx Allergies Allergy/AdvReac Type Severity Reaction Status Date / Time chlorhexidine Allergy Intermediate RASH Verified 05/14/24 22:51 oxycodone Allergy Intermediate Vomiting Verified 05/14/24 22:51 Sulfa (Sulfonamide Allergy Mild HIVES Verified 05/14/24 22:51 Antibiotics) Vital Signs Vital Signs - 24 hr 05/14/24 15:05 Temperature 97.2 F L Pulse Rate 88 Respiratory Rate 16 Blood Pressure 135/82 Pulse Oximetry 100 Exam Narrative: General: In no acute distress, well nourished Head: atraumatic, no encephalopathy Eyes: PERRLA, sclera clear ENT: moist mucous membranes, nasal passages clear Neck: supple, no JVD, no adenopathy, trachea midline Cardiac: Normal S1 and S2. No murmur, gallops or friction rubs, peripheral pulses intact. Respiratory: Lungs clear to auscultation, no adventitious lung sounds, currently on room air Gastrointestinal: soft, non-distended, non-tender, normoactive bowel sounds. : voiding without difficulty. Extremities: moves all extremities well, no edema Skin: clean, dry, intact. No wounds or lesions. Neuro: Alert and oriented x4, cranial nerves intact, no neuro deficits. Psych: normal mood, flat affect, interactive H&P: Results Labs Labs: Short CBC 05/14/24 Range/Units 16:18 WBC 12.7 H (4.5-10.0) K/mm3 Hgb 14.3 (12.0-15.0) g/dL Hct 42.9 (37.0-47.0) % Plt Count 198 (150-375) k/mm3 BMP 05/14/24 16:18 Sodium 145 Potassium 3.9 Chloride 108 H Carbon Dioxide 21 L BUN 12 Creatinine 0.83 Glucose 101 Calcium 9.9 Liver Function 05/14/24 Range/Units 16:18 Total Bilirubin 0.7 (0.2-1.3) mg/dL AST 26 (14-36) U/L ALT 24 (6-35) U/L Alkaline Phosphatase 109 (38-126) U/L Albumin 5.0 (3.5-5.1) g/dL Urine 05/14/24 Range/Units 18:51 Urine Color Yellow (Yellow) Urine Appearance Cloudy H (Clear) Urine pH 7.5 (5.0-9.0) Ur Specific [place] 1.014 (1.001-1.035) Urine Protein Trace (Negative) mg/dL Urine Glucose (UA) Negative (Negative) mg/dL Imaging Abdomen/pelvis CT: Radiologist's impression: EXAMINATION: CT abdomen pelvis w con DATE: 05/14/2024 19:18 INDICATION: LOWER ABDOMINAL PAIN TECHNIQUE: Computed tomography (CT) of the abdomen and pelvis was performed with 100 mL Omnipaque-350 intravenous contrast. Automated exposure control and iterative reconstruction technique were employed. The dose-length product was 280.58 mGy-cm. COMPARISON: None. FINDINGS: Lower thorax: Unremarkable Liver: Normal. Biliary/Gallbladder: Gallbladder is normal. No bile duct dilation. Pancreas: No mass or duct dilation. Spleen: Normal. Adrenals:No mass. Kidneys: Delayed left nephrogram. Mild left pelviectasis and caliectasis. 5 mm calcification at the left UPJ. Punctate bilateral nonobstructing calculi. No suspicious mass. No right hydronephrosis. GI tract: Small hiatal hernia. Linear hyperdense focus at the GE junction may represent a surgical clip from prior surgery or ingested material. Mild gastroesophageal and gastric wall edema. No small or large bowel dilation. Mild scattered areas of colonic wall edema. Appendix not confidently identified. No right lower quadrant inflammatory process. Diverticulosis without diverticulitis. Mesentery/Peritoneum: No ascites, mass, or free air. Retroperitoneum: No mass. Pelvis: Normal uterus and right ovary. Left ovary is not confidently identified.. Soft Tissues: Soft tissues and body wall unremarkable. Bones: No acute osseous finding. IMPRESSION: 5 mm left UPJ stone causing mild obstructive uropathy. Scattered areas of colonic wall edema may reflect infectious, inflammatory, or ischemic colitis. Reviewed, dictated and finalized at [facility]. Assessment and Plan Assessment and plan (1) High anion gap metabolic acidosis: Code(s): E87.29 - Other acidosis Status: Acute Assessment and Plan: Secondary to nausea and vomiting--dehydration * Bicarb 21, anion gap 16 * Patient given 1 L IV fluids * Advanced diet as tolerated to a regular diet * Continue antiemetics * Continue to trend labs * Admit to med/surg floor (2) Dehydration: Code(s): E86.0 - Dehydration Status: Acute Assessment and Plan: Reporting nausea, vomiting, abdominal pain secondary to ureterolithiasis * Patient given 1 L IV fluids while in the ED * Continue to trend electrolytes * Advance diet to regular diet as tolerated (3) Ureterolithiasis: Code(s): N20.1 - Calculus of ureter Status: Acute Assessment and Plan: * CT of abdomen pelvis showed 5 mm left UPJ stone causing mild obstructive uropathy, scattered area of colonic wall edema representing possible infectious versus inflammatory versus ischemic colitis * Patient given 1 L of normal saline while in the ED * Urology was consulted * Patient started on Flomax * UA showed cloudy urine appearance, 3+ urine ketone, 3+ urine blood, trace leukocyte, greater than 100 urine RBC, rare urine bacteria--no urine culture was reflected * White blood cell count 12.7 (4) Anxiety: Code(s): F41.9 - Anxiety disorder, unspecified Status: Acute Assessment and Plan: * Continue Wellbutrin (5) Depression: Code(s): F32.A - Depression, unspecified Status: Acute Assessment and Plan: See above plan of care (6) Cerebral palsy: Code(s): G80.9 - Cerebral palsy, unspecified Status: Acute Assessment and Plan: Father is her caregiver and has been admitted to ICU due to illness. Deemed not a safe discharge as she can not care for herself. Patient states she has an Uncle who lives in [place] who is the closest relative that lives near her. She thinks she could stay with him until her father is better. * Care coordination consulted Quality VTE Prophylaxis VTE prophylaxis: mechanical ordered Hospitalist MIPS Advance Care Plan I have confirmed that the patient's Advanced Care Plan is present, code status is documented, or surrogate decision maker is listed in patient medical record.: Yes Medication Reconciliation I have utilized all available resources to obtain, update and review the patients current medications (includes all prescriptions, OTC, herbals, cannabis, and nutritional supplements).: Yes
[2024-05-14] MEDS: TAMSULOSIN HCL 0.4 MG CAPSULE PO (20:51)
[2024-05-14] MEDS: KETOROLAC 15 MG/ML VIAL (*BKC) IV PUSH (20:52)
[2024-05-15 04:45] VITALS: BP 106/56; PULSE 92; RESP 18; TEMP 36.7; O2SAT 100
[2024-05-15] MEDS: ACETAMINOPHEN 325 MG TABLET 650 MG PO ×3 (06:06→16:18)
[2024-05-15 06:09] LABS: Basophils Percent Auto 0.2 % (0.2-1.2); Eosinophils Absolute Auto 0.1 K/mm3 (0-0.3); Eosinophils Percent Auto 1.1 % (0-4.4); Hematocrit 37.9 % (37.0-47.0); Hemoglobin 12.5 g/dL (12.0-15.0); Immature Granulocyte Absolute 0.02 K/mm3 (0.00-0.031); Immature Granulocyte Percent A 0.2 % (0-0.5); Lymphocytes Absolute Auto 3.74 K/mm3 (0.9-3.2); Lymphocytes Percent Auto 37.8 % (18.3-44.2); Mean Corpuscular Hemoglobin 30.9 pg (26-34); Mean Corpuscular Volume 93.8 fl (80-100); Mean Platelet Volume 11.7 fl (7.4-10.4); Monocytes Absolute Auto 0.8 K/mm3 (0.1-0.6); Monocytes Percent Auto 7.8 % (2.6-8.5); Neutrophils Absolute Auto 5.2 K/mm3 (1.3-6.7); Neutrophils Percent Auto 52.9 % (45.5-73.1); Platelet Count Result 177 k/mm3 (150-375); Red Blood Count 4.04 M/mm3 (4.2-5.4); Red Cell Distribution Width 11.9 % (11.5-14.5); White Blood Count 9.9 K/mm3 (4.5-10.0)
[2024-05-15] MEDS: ONDANSETRON INJ 4 MG/2 ML VIAL IV PUSH ×2 (06:14→16:18)
[2024-05-15 06:20] LABS: Alanine Aminotransferase 20 U/L (6-35); Albumin Level 3.9 g/dL (3.5-5.1); Alkaline Phosphatase 79 U/L (38-126); Anion Gap 13 mmol/L (4-12); Aspartate Amino Transferase 24 U/L (14-36); Bilirubin,Total 0.7 mg/dL (0.2-1.3); Blood Urea Nitrogen 7 mg/dL (7-17); Calcium 8.9 mg/dL (8.4-10.2); Carbon Dioxide 18 mmol/L (22-30); Chloride 108 mmol/L (98-107); Estimated CRCL calculation 94 ml/min; Estimated Glomerular Filt Rate > 60; Glucose 102 mg/dL (65-110); Potassium 3.2 mmol/L (3.4-5.0); Sodium 139 mmol/L (137-145)
[2024-05-15] MEDS: TAMSULOSIN HCL 0.4 MG CAPSULE PO (08:13)
[2024-05-15] MEDS: buPROPion HCL XL (24 HR) 150 MG TABCR PO (08:13)
--- NOTE | 2024-05-15 08:25 | P.PNIM_ITS ---
Progress Note: A&P Assessment and Plan (1) High anion gap metabolic acidosis: Code(s): E87.29 - Other acidosis Status: Acute Assessment and Plan: Secondary to nausea and vomiting--dehydration * Bicarb 21, anion gap 16 * Patient given 1 L IV fluids * Advanced diet as tolerated to a regular diet * Continue antiemetics, continue pain meds * Continue to trend labs (2) Dehydration: Code(s): E86.0 - Dehydration Status: Acute Assessment and Plan: Reporting nausea, vomiting, abdominal pain secondary to ureterolithiasis * Patient given 1 L IV fluids while in the ED * Continue to trend electrolytes * Advance diet to regular diet as tolerated (3) Ureterolithiasis: Code(s): N20.1 - Calculus of ureter Status: Acute Assessment and Plan: * CT of abdomen pelvis showed 5 mm left UPJ stone causing mild obstructive uropathy, scattered area of colonic wall edema representing possible infectious versus inflammatory versus ischemic colitis * Patient given 1 L of normal saline while in the ED * Urology was consulted * Patient started on Flomax * UA showed cloudy urine appearance, 3+ urine ketone, 3+ urine blood, trace leukocyte, greater than 100 urine RBC, rare urine bacteria--no urine culture was reflected * White blood cell count 12.7 (4) Anxiety: Code(s): F41.9 - Anxiety disorder, unspecified Status: Acute Assessment and Plan: * Continue Wellbutrin * wellbutrin is not a good choice for anti anxiety tx as it could make anxiety worse- will need to f/u with pcp or psych for eval and otehr alternatives (5) Depression: Code(s): F32.A - Depression, unspecified Status: Acute Assessment and Plan: See above plan of care (6) Cerebral palsy: Code(s): G80.9 - Cerebral palsy, unspecified Status: Acute Assessment and Plan: Father is her caregiver and has been admitted to ICU due to illness. Deemed not a safe discharge as she can not care for herself. Patient states she has an Uncle who lives in [place] who is the closest relative that lives near her. She thinks she could stay with him until her father is better. * Care coordination consulted Plan k 3.2- will add couple doses for replacement. trend with daily labs Time Spent With Patient Time with patient: 25 - 35 minutes Subjective Date/time seen: 05/15/24 08:25 Interval history: 29-year-old female with PMH/of cerebral palsy, anxiety, depression, left oophorectomy who presented to the hospital with complaints of abdominal pain and vomiting. She was accompanied by her father who is her bulk materials handling plant operator however he was found to be ill himself and admitted to ICU here. Abdomen/pelvis CT which showed 5 mm left PUJ stone causing mild obstructive uropathy, scattered area of colonic wall edema which may reflect infectious, inflammatory, or ischemic colitis. Initial labs showed a white blood cell count of 12.7, bicarb 21, anion gap 16, lipase was normal at 54. UA was obtained which showed cloudy urine appearance, 3+ urine ketone, 3+ urine blood, trace leukocyte, greater than 100 urine RBC, rare bacteria seen. Urine test was negative.Respiratory panel was negative for influenza A and B, RSV, COVID. Patient was given 1 L of normal saline, Reglan, Zofran, Benadryl, Dilaudid, Toradol, and a dose of Flomax while in the ED. She was going to be discharged however it was deemed unsafe due to the caregiver's illness and being admitted to ICU. Urology was consulted. She is being admitted for safe discharge planning. Care coordination consulted. 3.10- pt is seen and examined. taking tylenol for pain and still c/o nausea Review of Systems Review of Systems: All systems reviewed & are unremarkable except as noted in HPI and below Exam Narrative: General: In no acute distress, well nourished Head: atraumatic, no encephalopathy Eyes: PERRLA, sclera clear ENT: moist mucous membranes, nasal passages clear Neck: supple, no JVD, no adenopathy, trachea midline Cardiac: Normal S1 and S2. No murmur, gallops or friction rubs, peripheral pulses intact. Respiratory: Lungs clear to auscultation, no adventitious lung sounds, currently on room air Gastrointestinal: soft, non-distended, non-tender, normoactive bowel sounds. : voiding without difficulty. Extremities: moves all extremities well, no edema Skin: clean, dry, intact. No wounds or lesions. Neuro: Alert and oriented x4, cranial nerves intact, no neuro deficits. Psych: normal mood, flat affect, interactive Objective Data Vital Signs Vital Signs: Vital Signs - 24 hr 05/14/24 15:05 05/14/24 16:30 05/14/24 18:00 Temperature 97.2 F L Pulse Rate 88 86 68 Respiratory Rate 16 17 15 Blood Pressure 135/82 130/85 127/89 Pulse Oximetry 100 99 99 Oxygen Delivery 05/14/24 19:00 05/14/24 21:00 05/14/24 21:12 Temperature Pulse Rate 88 98 Respiratory Rate 16 18 Blood Pressure 123/84 129/80 Pulse Oximetry 100 98 99 Oxygen Delivery 05/14/24 21:15 05/14/24 21:43 05/14/24 21:55 Temperature Pulse Rate Respiratory Rate Blood Pressure Pulse Oximetry 99 100 100 Oxygen Delivery 05/14/24 22:00 05/14/24 22:11 05/14/24 22:15 Temperature Pulse Rate 97 Respiratory Rate 18 Blood Pressure 116/74 Pulse Oximetry 99 99 100 Oxygen Delivery 05/14/24 23:55 05/15/24 00:24 05/15/24 04:45 Temperature 98.8 F 98.1 F Pulse Rate 103 H 92 Respiratory Rate 18 18 Blood Pressure 125/71 106/56 L Pulse Oximetry 98 100 Oxygen Delivery Room Air Intake/Output Intake/Output: Intake & Output 05/12/24 05/13/24 05/15/24 05/15/24 23:59 23:59 00:59 23:59 Intake Total 1000 760 Balance 1000 760 Meds/Results Medications: Active Medications Generic Name Dose Route Start Last Admin Trade Name Freq PRN Reason Stop Dose Admin Acetaminophen 650 mg 05/14/24 20:51 05/15/24 06:06 Acetaminophen 325 Mg Tablet PO 650 mg Q4H PRN Administration Mild Pain (1-3) or Fever Bupropion HCl 150 mg 05/15/24 09:00 05/15/24 08:13 Bupropion Hcl Xl (24 Hr) 150 Mg Tabcr PO 150 mg DAILY BERTHA Administration Ketorolac Tromethamine 15 mg 05/15/24 08:19 Ketorolac 15 Mg/Ml Vial (*Bkc) IV PUSH Q6H PRN Pain Rated 4-6 Ondansetron HCl 4 mg 05/14/24 20:51 05/15/24 06:14 Ondansetron Inj 4 Mg/2 Ml Vial IV PUSH 4 mg Q6H PRN Administration Nausea And Vomiting Prochlorperazine Maleate 5 mg 05/15/24 08:19 Prochlorperazine Maleate 5 Mg Tablet PO Q6H PRN Nausea And Vomiting Tamsulosin HCl 0.4 mg 05/15/24 09:00 05/15/24 08:13 Tamsulosin Hcl 0.4 Mg Capsule PO 0.4 mg QAM BERTHA Administration Radiology Results: ITS Impressions Abdomen/Pelvis CT 05/14/24 19:29 IMPRESSION: 5 mm left UPJ stone causing mild obstructive uropathy. Scattered areas of colonic wall edema may reflect infectious, inflammatory, or ischemic colitis. Labs Labs: Laboratory Results - last 24 hr 05/14/24 05/14/24 05/14/24 16:18 18:51 18:55 WBC 12.7 H RBC 4.60 Hgb 14.3 Hct 42.9 MCV 93.3 MCH 31.1 MCHC 33.3 RDW 11.7 Plt Count 198 MPV 11.6 H Immature Gran % (Auto) 0.3 Neut % (Auto) 84.7 H Lymph % (Auto) 10.4 L [place] % (Auto) 4.2 Eos % (Auto) 0.1 Baso % (Auto) 0.3 Lymph # (Auto) 1.32 [place] # (Auto) 0.5 Eos # (Auto) 0.0 Baso # (Auto) 0.0 Abs Immat Gran (auto) 0.04 H Absolute Neuts (auto) 10.7 H Absolute Nucleated RBC 0.000 Nucleated RBC % 0.0 Sodium 145 Potassium 3.9 Chloride 108 H Carbon Dioxide 21 L Anion Gap 16 H BUN 12 Creatinine 0.83 Estim Creat Clear Calc 75 Estimated GFR > 60 Glucose 101 Calcium 9.9 Magnesium Total Bilirubin 0.7 AST 26 ALT 24 Alkaline Phosphatase 109 Total Protein 8.0 Albumin 5.0 Lipase 54 Urine Color Yellow Urine Appearance Cloudy H Urine pH 7.5 Ur Specific [place] 1.014 Urine Protein Trace Urine Glucose (UA) Negative Urine Ketones 3+ H Ur Blood (Man) 3+ H Urine Nitrate Negative Urine Bilirubin Negative Urine Urobilinogen 1.0 Leukocyte Esterase Rfl Trace H Urine RBC >100 H Urine WBC 0-5 Ur Squamous Epith Cells Occasional Urine Bacteria Rare Urine Casts 0-2 POC Urine HCG, Qual Negative Influenza A (RT-PCR) Negative Influenza B (RT-PCR) Negative RSV (RT-PCR) Negative SARS-CoV-2 RNA (RT-PCR) Negative 05/15/24 05:36 WBC 9.9 RBC 4.04 L Hgb 12.5 Hct 37.9 MCV 93.8 MCH 30.9 MCHC 33.0 RDW 11.9 Plt Count 177 MPV 11.7 H Immature Gran % (Auto) 0.2 Neut % (Auto) 52.9 Lymph % (Auto) 37.8 [place] % (Auto) 7.8 Eos % (Auto) 1.1 Baso % (Auto) 0.2 Lymph # (Auto) 3.74 H [place] # (Auto) 0.8 H Eos # (Auto) 0.1 Baso # (Auto) 0.0 Abs Immat Gran (auto) 0.02 Absolute Neuts (auto) 5.2 Absolute Nucleated RBC 0.000 Nucleated RBC % 0.0 Sodium 139 Potassium 3.2 L Chloride 108 H Carbon Dioxide 18 L Anion Gap 13 H BUN 7 D Creatinine 0.65 L Estim Creat Clear Calc 94 Estimated GFR > 60 Glucose 102 Calcium 8.9 Magnesium 2.0 Total Bilirubin 0.7 AST 24 ALT 20 Alkaline Phosphatase 79 Total Protein 6.0 L Albumin 3.9 Lipase Urine Color Urine Appearance Urine pH Ur Specific [place] Urine Protein Urine Glucose (UA) Urine Ketones Ur Blood (Man) Urine Nitrate Urine Bilirubin Urine Urobilinogen Leukocyte Esterase Rfl Urine RBC Urine WBC Ur Squamous Epith Cells Urine Bacteria Urine Casts POC Urine HCG, Qual Influenza A (RT-PCR) Influenza B (RT-PCR) RSV (RT-PCR) SARS-CoV-2 RNA (RT-PCR) Quality VTE Prophylaxis VTE prophylaxis: mechanical ordered
--- NOTE | 2024-05-15 08:36 | WPDURCON ---
Assessment and Plan Assessment and plan (1) Ureterolithiasis: Code(s): N20.1 - Calculus of ureter Status: Acute Assessment and Plan: - 5mm, Left UPJ on initial CT - KUB today shows stone in proximal ureter (2) Cerebral palsy: Code(s): G80.9 - Cerebral palsy, unspecified Status: Acute Plan Clinical presentation and imaging findings consistent with uncomplicated left ureteral stone. While outpatient management would have been appropriate from a urologic standpoint, admission required due to lack of caregiver support given special needs status and father's unexpected ICU admission. Renal function stable. UA negative for infection. - Will attempt trial of passage with tamsulosin, fluids, PRN pain control, PRN antiemetics today - No plan for urologic surgical intervention today. OK to resume diet. - Strain all urine, encourage ambulation and oral fluid intake - If she does not pass stone today, NPO after midnight for cystoscopy/left ureteroscopy in the OR tomorrow morning with Dr. Tesfaye Case discussed with Dr. Rivera and bedside stringer up soldering machine Consult Note HPI Date Seen: 05/15/24 Requesting Physician: Ulices Cardenas MD Primary Care Provider: Natan Dorantes MD Consult Narrative Reason for consult: Left ureteral stone, poor pain control Narrative: Suzanna Rod is a 29-year-old female with special needs presenting to the emergency department with abdominal pain, nausea, and vomiting. CT abdomen/pelvis with contrast at [facility] on 05/14/2024 showed 5mm left proximal ureteral stone with mild hydronephrosis and slightly delayed nephrogram. Labs notable for WBC 12, creatinine 0.8. Urinalysis shows nitrite negative, trace leukocyte esterase, 3+ RBCs with markedly more RBCs than WBCs. Initially planned for outpatient management, but admitted for social reasons as father developed acute health issues requiring ICU admission with no other caregivers available. Patient is alert and oriented to person, place, time, situation. She states she makes her own medical decisions most of the time. She is ambulatory. Primary caregiver is her father, secondary is an uncle in [place]. She denies prior history of stones. Reports left flank pain, radiates to left abdomen. She is requesting pain medication. 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 Anxiety Depression Surgical History Surgical History H/O oophorectomy Family History Family History Father Asthma Social History Social History Smoking status: Never smoker Alcohol intake: never Substance use: never Substance use type: does not use Do You Feel Safe in your Home?: Yes Lack of Transportation: No Lack of Food: Never True Current Housing: I Have Housing Concerned About Future Housing: No Difficulty Paying Gas/Electric Bills: No Difficulty Paying for Meds: No Currently Unemployed: No Education: High School Diploma/GED Difficulty w/ Childcare or Family Care: No Living arrangements: with family Spiritual care concerns: Yes Meds Home Medications and Allergies Home Medications ?Medication ?Instructions ?Recorded ?Confirmed ?Type bupropion HCl 150 mg 24 hr tablet, 150 mg PO DAILY 06/15/23 05/14/24 History extended release medroxyprogesterone 150 mg/mL 150 mg IM [id number] 06/15/23 05/14/24 History intramuscular suspension ketorolac 10 mg tablet 10 mg PO Q6H PRN pain #20 tabs 05/14/24 Rx ondansetron 4 mg disintegrating 4 mg PO Q8H PRN nausea and 05/14/24 Rx tablet vomiting #10 tabs tamsulosin 0.4 mg capsule (Flomax) 0.4 mg PO DAILY #14 caps 05/14/24 Rx Allergies Allergy/AdvReac Type Severity Reaction Status Date / Time chlorhexidine Allergy Intermediate RASH Verified 05/14/24 22:51 oxycodone Allergy Intermediate Vomiting Verified 05/14/24 22:51 Sulfa (Sulfonamide Allergy Mild HIVES Verified 05/14/24 22:51 Antibiotics) Vital Signs Vital Signs - 24 hr 05/14/24 15:05 05/14/24 16:30 05/14/24 18:00 Temperature 97.2 F L Pulse Rate 88 86 68 Respiratory Rate 16 17 15 Blood Pressure 135/82 130/85 127/89 Pulse Oximetry 100 99 99 Oxygen Delivery 05/14/24 19:00 05/14/24 21:00 05/14/24 21:12 Temperature Pulse Rate 88 98 Respiratory Rate 16 18 Blood Pressure 123/84 129/80 Pulse Oximetry 100 98 99 Oxygen Delivery 05/14/24 21:15 05/14/24 21:43 05/14/24 21:55 Temperature Pulse Rate Respiratory Rate Blood Pressure Pulse Oximetry 99 100 100 Oxygen Delivery 05/14/24 22:00 05/14/24 22:11 05/14/24 22:15 Temperature Pulse Rate 97 Respiratory Rate 18 Blood Pressure 116/74 Pulse Oximetry 99 99 100 Oxygen Delivery 05/14/24 23:55 05/15/24 00:24 05/15/24 04:45 Temperature 98.8 F 98.1 F Pulse Rate 103 H 92 Respiratory Rate 18 18 Blood Pressure 125/71 106/56 L Pulse Oximetry 98 100 Oxygen Delivery Room Air Exam Narrative: Appears uncomfortable, guarding left abdomen Results Labs 05/15/24 05:36 05/15/24 05:36 Labs: Short CBC 05/14/24 05/15/24 Range/Units 16:18 05:36 WBC 12.7 H 9.9 (4.5-10.0) K/mm3 Hgb 14.3 12.5 (12.0-15.0) g/dL Hct 42.9 37.9 (37.0-47.0) % Plt Count 198 177 (150-375) k/mm3 BMP 05/14/24 05/15/24 16:18 05:36 Sodium 145 139 Potassium 3.9 3.2 L Chloride 108 H 108 H Carbon Dioxide 21 L 18 L BUN 12 7 D Creatinine 0.83 0.65 L Glucose 101 102 Calcium 9.9 8.9 Liver Function 05/14/24 05/15/24 Range/Units 16:18 05:36 Total Bilirubin 0.7 0.7 (0.2-1.3) mg/dL AST 26 24 (14-36) U/L ALT 24 20 (6-35) U/L Alkaline Phosphatase 109 79 (38-126) U/L Albumin 5.0 3.9 (3.5-5.1) g/dL Urine 05/14/24 Range/Units 18:51 Urine Color Yellow (Yellow) Urine Appearance Cloudy H (Clear) Urine pH 7.5 (5.0-9.0) Ur Specific [place] 1.014 (1.001-1.035) Urine Protein Trace (Negative) mg/dL Urine Glucose (UA) Negative (Negative) mg/dL
[2024-05-15] MEDS: PROCHLORPERAZINE MALEATE 5 MG TABLET PO (08:39)
[2024-05-15] MEDS: KETOROLAC 15 MG/ML VIAL (*BKC) IV PUSH ×2 (09:27→16:18)
[2024-05-15 13:38] VITALS: BP 116/77; PULSE 104; RESP 16; TEMP 36.8; O2SAT 98
[2024-05-15] MEDS: POTASSIUM CHLORIDE 20 MEQ PACKET (FOR LIQUID) 40 MEQ PO (13:43)
[2024-05-15 21:40] VITALS: BP 141/64; PULSE 97; RESP 16; TEMP 36.9; O2SAT 97
[2024-05-16] VITALS (14 sets, daily range): BP systolic 112–138; BP diastolic 74–95; PULSE 74–104; RESP 10–18; TEMP 36.1–36.7; O2SAT 95–100
[2024-05-16 06:27] LABS: Basophils Percent Auto 0.5 % (0.2-1.2); Eosinophils Absolute Auto 0.2 K/mm3 (0-0.3); Eosinophils Percent Auto 1.8 % (0-4.4); Hematocrit 39.2 % (37.0-47.0); Hemoglobin 12.5 g/dL (12.0-15.0); Immature Granulocyte Absolute 0.04 K/mm3 (0.00-0.031); Immature Granulocyte Percent A 0.5 % (0-0.5); Lymphocytes Absolute Auto 3.67 K/mm3 (0.9-3.2); Lymphocytes Percent Auto 42.3 % (18.3-44.2); Mean Corpuscular HGB Conc 31.9 g/dl (32-36); Mean Platelet Volume 11.3 fl (7.4-10.4); Monocytes Absolute Auto 0.6 K/mm3 (0.1-0.6); Monocytes Percent Auto 6.6 % (2.6-8.5); Neutrophils Absolute Auto 4.2 K/mm3 (1.3-6.7); Neutrophils Percent Auto 48.3 % (45.5-73.1); Platelet Count Result 178 k/mm3 (150-375); Red Blood Count 4.17 M/mm3 (4.2-5.4); Red Cell Distribution Width 11.9 % (11.5-14.5); White Blood Count 8.7 K/mm3 (4.5-10.0)
[2024-05-16 06:35] LABS: Alanine Aminotransferase 20 U/L (6-35); Albumin Level 4.1 g/dL (3.5-5.1); Alkaline Phosphatase 78 U/L (38-126); Anion Gap 11 mmol/L (4-12); Aspartate Amino Transferase 24 U/L (14-36); Bilirubin,Total 0.6 mg/dL (0.2-1.3); Blood Urea Nitrogen 7 mg/dL (7-17); Carbon Dioxide 21 mmol/L (22-30); Chloride 109 mmol/L (98-107); Estimated CRCL calculation 94 ml/min; Estimated Glomerular Filt Rate > 60; Glucose 92 mg/dL (65-110); Potassium 3.2 mmol/L (3.4-5.0); Sodium 141 mmol/L (137-145)
--- NOTE | 2024-05-16 08:00 | P.PNIM_ITS ---
Progress Note: A&P Assessment and Plan (1) High anion gap metabolic acidosis: Code(s): E87.29 - Other acidosis Status: Acute Assessment and Plan: Secondary to nausea and vomiting--dehydration * Bicarb 21, anion gap 16 * Patient given 1 L IV fluids * Advanced diet as tolerated to a regular diet * Continue antiemetics, continue pain meds * Continue to trend labs (2) Dehydration: Code(s): E86.0 - Dehydration Status: Acute Assessment and Plan: Reporting nausea, vomiting, abdominal pain secondary to ureterolithiasis * Patient given 1 L IV fluids while in the ED * Continue to trend electrolytes * potassium 3.2 -->3.2 today * continue with supplementation. * Advance diet to regular diet as tolerated (3) Ureterolithiasis: Code(s): N20.1 - Calculus of ureter Status: Acute Assessment and Plan: * CT of abdomen pelvis showed 5 mm left UPJ stone causing mild obstructive uropathy, scattered area of colonic wall edema representing possible infectious versus inflammatory versus ischemic colitis * Patient given 1 L of normal saline while in the ED * Urology was consulted * --> to OR today --> 4.8 Urdu contour stent is then placed with the proximal end coiled in the renal pelvis and the distal in the bladder. Patient is taken recovery stable condition. Stent can be removed in 1-2 weeks time. * Patient started on Flomax * UA showed cloudy urine appearance, 3+ urine ketone, 3+ urine blood, trace leukocyte, greater than 100 urine RBC, rare urine bacteria--no urine culture was reflected * White blood cell count 12.7--> 8.7 (4) Anxiety: Code(s): F41.9 - Anxiety disorder, unspecified Status: Acute Assessment and Plan: * Continue Wellbutrin * wellbutrin is not a good choice for anti anxiety tx as it could make anxiety worse- will need to f/u with pcp or psych for eval and other alternatives (5) Depression: Code(s): F32.A - Depression, unspecified Status: Acute Assessment and Plan: See above plan of care (6) Cerebral palsy: Code(s): G80.9 - Cerebral palsy, unspecified Status: Acute Assessment and Plan: Father is her caregiver and has been admitted to ICU due to illness. Deemed not a safe discharge as she can not care for herself. Patient states she has an Uncle who lives in [place] who is the closest relative that lives near her. She thinks she could stay with him until her father is better. * Care coordination consulted for safe discharge Time Spent With Patient Time with patient: Greater than 35 minutes (45 minutes) Subjective Date/time seen: 05/16/24 08:00 Interval history: 29-year-old female with PMH/of cerebral palsy, anxiety, depression, left oophorectomy who presented to the hospital with complaints of abdominal pain and vomiting. She was accompanied by her father who is her golf sales associate however he was found to be ill himself and admitted to ICU here. Abdomen/pelvis CT which showed 5 mm left PUJ stone causing mild obstructive uropathy, scattered area of colonic wall edema which may reflect infectious, inflammatory, or ischemic colitis. Initial labs showed a white blood cell count of 12.7, bicarb 21, anion gap 16, lipase was normal at 54. UA was obtained which showed cloudy urine appearance, 3+ urine ketone, 3+ urine blood, trace leukocyte, greater than 100 urine RBC, rare bacteria seen. Urine test was negative.Respiratory panel was negative for influenza A and B, RSV, COVID. Patient was given 1 L of normal saline, Reglan, Zofran, Benadryl, Dilaudid, Toradol, and a dose of Flomax while in the ED. She was going to be discharged however it was deemed unsafe due to the caregiver's illness and being admitted to ICU. Urology was consulted. She is being admitted for safe discharge planning. Care coordination consulted. 3.10- pt is seen and examined. taking tylenol for pain and still c/o nausea 3- patient went to OR today for Cystoscopy with possible stent placement with possible stone removal. Patient reports being sleepy, denies any pain concurrently. No fever, chills, nausea, vomiting, diarrhea. Review of Systems Review of Systems: All systems reviewed & are unremarkable except as noted in HPI and below Exam Narrative: General: In no acute distress, well nourished Head: atraumatic, no encephalopathy Eyes: PERRLA, sclera clear ENT: moist mucous membranes, nasal passages clear Neck: supple, no JVD, no adenopathy, trachea midline Cardiac: Normal S1 and S2. No murmur, gallops or friction rubs, peripheral pulses intact. Respiratory: Lungs clear to auscultation, no adventitious lung sounds, currently on room air Gastrointestinal: soft, non-distended, non-tender, normoactive bowel sounds. : voiding without difficulty. Extremities: moves all extremities well, no edema Skin: clean, dry, intact. No wounds or lesions. Neuro: Alert and oriented x4, cranial nerves intact, no neuro deficits. Psych: normal mood, flat affect, interactive Objective Data Vital Signs Vital Signs: Vital Signs - 24 hr 05/15/24 13:38 05/15/24 21:40 05/15/24 21:40 Temperature 98.3 F 98.4 F 98.4 F Pulse Rate 104 H 97 97 Respiratory Rate 16 16 16 Blood Pressure 116/77 141/64 H 141/64 H Pulse Oximetry 98 97 97 05/16/24 05:45 Temperature 97.9 F Pulse Rate 92 Respiratory Rate 18 Blood Pressure 128/82 Pulse Oximetry 98 Intake/Output Intake/Output: Intake & Output 05/13/24 05/15/24 05/15/24 05/16/24 23:59 00:59 23:59 23:59 Intake Total 1000 1120 118 Output Total 200 Balance 1000 920 118 Meds/Results Medications: Active Medications Generic Name Dose Route Start Last Admin Trade Name Freq PRN Reason Stop Dose Admin Acetaminophen 650 mg 05/14/24 20:51 05/15/24 16:18 Acetaminophen 325 Mg Tablet PO 650 mg Q4H PRN Administration Mild Pain (1-3) or Fever Bupropion HCl 150 mg 05/15/24 09:00 05/15/24 08:13 Bupropion Hcl Xl (24 Hr) 150 Mg Tabcr PO 150 mg DAILY BERTHA Administration Fentanyl Citrate 25 mcg 05/15/24 19:55 Fentanyl Citrate Inj (*Crx) 100 Mcg/2 Ml Vial IV PUSH Q2M PRN Pain Lactated Ringer's 1,000 mls @ 30 mls/hr 05/15/24 19:55 Lr - Lactated Ringers Iv IV CONT .Q24H BERTHA Lactated Ringer's 1,000 mls @ 30 mls/hr 05/15/24 19:55 Lr - Lactated Ringers Iv IV CONT .Q24H BERTHA Ketorolac Tromethamine 15 mg 05/15/24 08:19 05/15/24 16:18 Ketorolac 15 Mg/Ml Vial (*Bkc) IV PUSH 15 mg Q6H PRN Administration Pain Rated 4-6 Ondansetron HCl 4 mg 05/14/24 20:51 05/15/24 16:18 Ondansetron Inj 4 Mg/2 Ml Vial IV PUSH 4 mg Q6H PRN Administration Nausea And Vomiting Ondansetron HCl 4 mg 05/15/24 19:55 Ondansetron Inj 4 Mg/2 Ml Vial IV PUSH ONCE PRN Nausea Potassium Chloride 40 meq 05/15/24 13:30 05/15/24 13:43 Potassium Chloride 20 Meq Packet (For Liquid) PO 05/16/24 09:01 40 meq DAILY BERTHA Administration Prochlorperazine Maleate 5 mg 05/15/24 08:19 05/15/24 08:39 Prochlorperazine Maleate 5 Mg Tablet PO 5 mg Q6H PRN Administration Nausea And Vomiting Tamsulosin HCl 0.4 mg 05/15/24 09:00 05/15/24 08:13 Tamsulosin Hcl 0.4 Mg Capsule PO 0.4 mg QAM BERTHA Administration Radiology Results: ITS Impressions Abdomen/Pelvis CT 05/14/24 19:29 IMPRESSION: 5 mm left UPJ stone causing mild obstructive uropathy. Scattered areas of colonic wall edema may reflect infectious, inflammatory, or ischemic colitis. Abdomen X-Ray 05/15/24 08:27 IMPRESSION: 1. 4 mm stone in proximal left ureter. 2. 3 mm right kidney stone. Labs Labs: Laboratory Results - last 24 hr 05/16/24 05:44 WBC 8.7 RBC 4.17 L Hgb 12.5 Hct 39.2 MCV 94.0 MCH 30.0 MCHC 31.9 L RDW 11.9 Plt Count 178 MPV 11.3 H Immature Gran % (Auto) 0.5 Neut % (Auto) 48.3 Lymph % (Auto) 42.3 [place] % (Auto) 6.6 Eos % (Auto) 1.8 Baso % (Auto) 0.5 Lymph # (Auto) 3.67 H [place] # (Auto) 0.6 Eos # (Auto) 0.2 Baso # (Auto) 0.0 Abs Immat Gran (auto) 0.04 H Absolute Neuts (auto) 4.2 Absolute Nucleated RBC 0.000 Nucleated RBC % 0.0 Sodium 141 Potassium 3.2 L Chloride 109 H Carbon Dioxide 21 L Anion Gap 11 BUN 7 Creatinine 0.65 L Estim Creat Clear Calc 94 Estimated GFR > 60 Glucose 92 Calcium 9.0 Total Bilirubin 0.6 AST 24 ALT 20 Alkaline Phosphatase 78 Total Protein 7.0 Albumin 4.1 Quality VTE Prophylaxis VTE prophylaxis: mechanical ordered
--- NOTE | 2024-05-16 08:40 | WPDHPUPDATE1 ---
History and Physical Update Update Date/Time: 05/16/24 08:40 History and Physical has been reviewed, including an updated exam of the patient. There are NO changes in the patient's condition. Risks, benefits, and alternatives have been discussed and questions answered. Patient agrees to proceed with procedure. Proceed with cystoscopy, left retrograde, left ureteroscopy with stone extraction, possible laser, stent placement.
[2024-05-16] MEDS: LACTATED RINGERS 1,000 ML 30 ML IV CONT (09:30)
--- NOTE | 2024-05-16 11:07 | P.PNAN_ITS ---
Anes - Initial Pre Proc Eval Procedure: Operation Date: 05/16/24 10:30 Proposed Procedures p Cystoscopy, Left Retrograde Pyelogram, Left Ureteroscopy, Left Stone Extraction, Possible Holmium Laser, Possible Stent Placement - Mauri Tesfaye MD Date/Time: 05/16/24 11:07 Surgeon: Ulices Cardenas MD Pre Op Diagnosis: 5mm UPJ stone Patient Data Age: 29 Gender: F Height: 1.63 m Weight: 62.6 kg Last Vital Signs Temp 98.0 F 05/16/24 09:30 Pulse 104 H 05/16/24 09:30 Resp 16 05/16/24 09:30 BP 137/85 05/16/24 09:30 Pulse Ox 97 05/16/24 09:30 O2 Del Method Room Air 05/16/24 09:30 Allergies Allergy/AdvReac Type Severity Reaction Status Date / Time chlorhexidine Allergy Intermediate RASH Verified 05/14/24 22:51 oxycodone Allergy Intermediate Vomiting Verified 05/14/24 22:51 Sulfa (Sulfonamide Allergy Mild HIVES Verified 05/14/24 22:51 Antibiotics) Home Medications ?Medication ?Instructions ?Recorded ?Confirmed ?Type bupropion HCl 150 mg 24 hr tablet, 150 mg PO DAILY 06/15/23 05/14/24 History extended release medroxyprogesterone 150 mg/mL 150 mg IM [id number] 06/15/23 05/14/24 History intramuscular suspension ketorolac 10 mg tablet 10 mg PO Q6H PRN pain #20 tabs 05/14/24 Rx ondansetron 4 mg disintegrating 4 mg PO Q8H PRN nausea and 05/14/24 Rx tablet vomiting #10 tabs tamsulosin 0.4 mg capsule (Flomax) 0.4 mg PO DAILY #14 caps 05/14/24 Rx Laboratory Tests 05/16/24 05:44 WBC 8.7 K/mm3 (4.5-10.0) RBC 4.17 L M/mm3 (4.2-5.4) Hgb 12.5 g/dL (12.0-15.0) Hct 39.2 % (37.0-47.0) MCV 94.0 fl (80-100) MCH 30.0 pg (26-34) MCHC 31.9 L g/dl (32-36) RDW 11.9 % (11.5-14.5) Plt Count 178 k/mm3 (150-375) MPV 11.3 H fl (7.4-10.4) Immature Gran % (Auto) 0.5 % (0-0.5) Neut % (Auto) 48.3 % (45.5-73.1) Lymph % (Auto) 42.3 % (18.3-44.2) [place] % (Auto) 6.6 % (2.6-8.5) Eos % (Auto) 1.8 % (0-4.4) Baso % (Auto) 0.5 % (0.2-1.2) Lymph # (Auto) 3.67 H K/mm3 (0.9-3.2) [place] # (Auto) 0.6 K/mm3 (0.1-0.6) Eos # (Auto) 0.2 K/mm3 (0-0.3) Baso # (Auto) 0.0 K/mm3 (0.0-0.1) Abs Immat Gran (auto) 0.04 H K/mm3 (0.00-0.031) Absolute Neuts (auto) 4.2 K/mm3 (1.3-6.7) Absolute Nucleated RBC 0.000 K/mm3 (0.0-0.012) Nucleated RBC % 0.0 % (0.0-0.2) Sodium 141 mmol/L (137-145) Potassium 3.2 L mmol/L (3.4-5.0) Chloride 109 H mmol/L (98-107) Carbon Dioxide 21 L mmol/L (22-30) Anion Gap 11 mmol/L (4-12) BUN 7 mg/dL (7-17) Creatinine 0.65 L mg/dL (0.7-1.0) Estim Creat Clear Calc 94 ml/min Estimated GFR > 60 (59 - ) Glucose 92 mg/dL (65-110) Calcium 9.0 mg/dL (8.4-10.2) Total Bilirubin 0.6 mg/dL (0.2-1.3) AST 24 U/L (14-36) ALT 20 U/L (6-35) Alkaline Phosphatase 78 U/L (38-126) Total Protein 7.0 g/dL (6.3-8.2) Albumin 4.1 g/dL (3.5-5.1) Patient hx anesthesia problems: none Family hx anesthesia problems: none Results Review: All pre-operative results and documents have been reviewed as part of the pre- operative evaluation. 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 Anxiety Depression Surgical History Surgical History H/O oophorectomy Family History Family History Father Asthma Social History Social History Smoking status: Never smoker Alcohol intake: never Substance use: never Substance use type: does not use Do You Feel Safe in your Home?: Yes Lack of Transportation: No Lack of Food: Never True Current Housing: I Have Housing Concerned About Future Housing: No Difficulty Paying Gas/Electric Bills: No Difficulty Paying for Meds: No Currently Unemployed: No Education: High School Diploma/GED Difficulty w/ Childcare or Family Care: No Living arrangements: with family Spiritual care concerns: Yes Anes - [place] Final PreProcedure Day of Procedure 05/16/24 11:07 Patient weight: normal Lungs: normal air movement Airway: Mallampati scale class II Neurological: alert and oriented Last oral intake: >/= 8 hours ASA classification: II Emergent: no Anesthetic plan: proceed Anesthesia type and monitoring: general LMA and standard monitoring Results Review: All pre-operative results and documents have been reviewed as part of the pre- operative evaluation. Mild CP. Pt w no N/V since 8 am yest, and feeling well in preop area. Informed Consent: The patient's anesthetic plan and its attendant risks and benefits were discussed with the patient/family/POA. Questions were solicited and answers provided to the satisfaction of the patient/family/POA.
[2024-05-16] MEDS: ceFAZolin 2 GM/D5W 50 ML 2 GM/50 ML BAG IVPB (11:13)
[2024-05-16] MEDS: LIDOCAINE 2% GEL UROJET 10 ML PKG MUCOUS MEM (11:22)
--- NOTE | 2024-05-16 11:42 | W.PM.PROC2 ---
Procedure Note - Detailed Date of Procedure 05/16/24 Pre-op Diagnosis 5mm UPJ stone Post-op Diagnosis Same Procedure Performed Cystoscopy, left retrograde, left ureteroscopy with stone extraction, left stent placement 4.8 Liberian contour Surgeon Mauri Tesfaye MD Anesthesia General Description of Procedure Patient was taken to the operative suite correctly identified. Once anesthesia was obtained she was placed in dorsal lithotomy position and prepped and draped usual sterile fashion. Twenty-two Liberian scope was inserted into the bladder. There were no tumors. Right ureteral orifice was cannulated with a guidewire. Appears as if the stone is migrated into the distal ureter. I dilated the orifice with an 8/10 dilator. Rigid ureteral scope was inserted. The stone was visualized. It was too large to retrieve 1 piece. Using 200 micron fiber I lasered the stone multiple pieces. The largest was retrieved for analysis. Reinspection revealed no residual stones. Pyelogram was then performed to confirm placement of the stent. 4.8 Liberian contour stent is then placed with the proximal end coiled in the renal pelvis and the distal in the bladder. Patient is taken recovery stable condition. Stent can be removed in 1-2 weeks time. This completes dictation. Please send a copy of op note to my office Estimated Blood Loss 0 Urine Output 200 Drains Yes Packing No Pathology Yes Complications No immediate complications Condition Stable Disposition PACU
[2024-05-16] MEDS: fentaNYL CITRATE INJ (*CRX) 100 MCG/2 ML VIAL 25 MCG IV PUSH ×8 (12:05→13:08)
[2024-05-16] MEDS: ONDANSETRON INJ 4 MG/2 ML VIAL IV PUSH ×2 (13:08→20:32)
[2024-05-16] MEDS: PROCHLORPERAZINE MALEATE 5 MG TABLET PO (13:52)
[2024-05-16] MEDS: KETOROLAC 15 MG/ML VIAL (*BKC) IV PUSH (15:14)
--- NOTE | 2024-05-16 15:47 | PC.NURSE ---
Patient refused po meds right know, stated she would take later.
[2024-05-16] MEDS: TAMSULOSIN HCL 0.4 MG CAPSULE PO (16:45)
[2024-05-16] MEDS: buPROPion HCL XL (24 HR) 150 MG TABCR PO (16:46)
[2024-05-16] MEDS: POTASSIUM CHLORIDE 20 MEQ PACKET (FOR LIQUID) 40 MEQ PO (16:46)
[2024-05-16] MEDS: ACETAMINOPHEN 325 MG TABLET 650 MG PO (20:32)
[2024-05-17] VITALS: BP 133/65; PULSE 111; RESP 20; TEMP 36.2; O2SAT 98
[2024-05-17] MEDS: KETOROLAC 15 MG/ML VIAL (*BKC) IV PUSH ×2 (00:32→06:43)
[2024-05-17] MEDS: PROCHLORPERAZINE MALEATE 5 MG TABLET PO (00:36)
[2024-05-17] MEDS: ACETAMINOPHEN 325 MG TABLET 650 MG PO (02:30)
[2024-05-17 04:30] VITALS: BP 144/84; PULSE 102; RESP 16; TEMP 36.1; O2SAT 96
[2024-05-17 06:11] LABS: Basophils Percent Auto 0.2 % (0.2-1.2); Eosinophils Absolute Auto 0.1 K/mm3 (0-0.3); Eosinophils Percent Auto 0.7 % (0-4.4); Hematocrit 36.8 % (37.0-47.0); Hemoglobin 12.2 g/dL (12.0-15.0); Immature Granulocyte Absolute 0.04 K/mm3 (0.00-0.031); Immature Granulocyte Percent A 0.4 % (0-0.5); Lymphocytes Absolute Auto 3.17 K/mm3 (0.9-3.2); Lymphocytes Percent Auto 33.4 % (18.3-44.2); Mean Corpuscular HGB Conc 33.2 g/dl (32-36); Mean Corpuscular Hemoglobin 30.7 pg (26-34); Mean Corpuscular Volume 92.7 fl (80-100); Mean Platelet Volume 11.3 fl (7.4-10.4); Monocytes Absolute Auto 0.7 K/mm3 (0.1-0.6); Monocytes Percent Auto 6.8 % (2.6-8.5); Neutrophils Absolute Auto 5.6 K/mm3 (1.3-6.7); Neutrophils Percent Auto 58.5 % (45.5-73.1); Platelet Count Result 165 k/mm3 (150-375); Red Blood Count 3.97 M/mm3 (4.2-5.4); Red Cell Distribution Width 11.7 % (11.5-14.5); White Blood Count 9.5 K/mm3 (4.5-10.0)
[2024-05-17 06:21] LABS: Alanine Aminotransferase 17 U/L (6-35); Albumin Level 3.9 g/dL (3.5-5.1); Alkaline Phosphatase 80 U/L (38-126); Anion Gap 10 mmol/L (4-12); Aspartate Amino Transferase 20 U/L (14-36); Bilirubin,Total 0.6 mg/dL (0.2-1.3); Blood Urea Nitrogen 10 mg/dL (7-17); Calcium 9.1 mg/dL (8.4-10.2); Carbon Dioxide 20 mmol/L (22-30); Chloride 105 mmol/L (98-107); Estimated CRCL calculation 102 ml/min; Estimated Glomerular Filt Rate > 60; Glucose 94 mg/dL (65-110); Potassium 3.3 mmol/L (3.4-5.0); Sodium 135 mmol/L (137-145)
[2024-05-17] MEDS: ONDANSETRON INJ 4 MG/2 ML VIAL IV PUSH (06:43)
[2024-05-17 08:00] VITALS: O2SAT 99
[2024-05-17 08:16] VITALS: BP 123/88; PULSE 91; RESP 16; TEMP 36.6; O2SAT 99
[2024-05-17] MEDS: buPROPion HCL XL (24 HR) 150 MG TABCR PO (08:19)
[2024-05-17] MEDS: TAMSULOSIN HCL 0.4 MG CAPSULE PO (08:19)
[2024-05-17] MEDS: POTASSIUM CHLORIDE 20 MEQ ER TABLET 40 MEQ PO (08:19)
--- NOTE | 2024-05-17 10:37 | P.PNIM_ITS ---
Progress Note: A&P Assessment and Plan (1) High anion gap metabolic acidosis: Code(s): E87.29 - Other acidosis Status: Acute Assessment and Plan: Secondary to nausea and vomiting--dehydration * Bicarb 20, anion gap 10 * Advanced diet as tolerated to a regular diet * Continue antiemetics, continue pain meds * Continue to trend labs (2) Dehydration: Code(s): E86.0 - Dehydration Status: Acute Assessment and Plan: Reporting nausea, vomiting, abdominal pain secondary to ureterolithiasis * Patient given 1 L IV fluids while in the ED * Continue to trend electrolytes * potassium 3.3 today. Patient given Potassium Chloride 40 meq PO x1. * continue with supplementation. * Advance diet to regular diet as tolerated * Encourage water intake. (3) Ureterolithiasis: Code(s): N20.1 - Calculus of ureter Status: Acute Assessment and Plan: * CT of abdomen pelvis showed 5 mm left UPJ stone causing mild obstructive uropathy, scattered area of colonic wall edema representing possible infectious versus inflammatory versus ischemic colitis * Patient given 1 L of normal saline while in the ED * Urology was consulted * --> to OR 05/16/24--> 4.8 Chinese contour stent is then placed with the proximal end coiled in the renal pelvis and the distal in the bladder. Patient is taken recovery stable condition. Stent can be removed in 1-2 weeks time. * Patient started on Flomax * UA showed cloudy urine appearance, 3+ urine ketone, 3+ urine blood, trace leukocyte, greater than 100 urine RBC, rare urine bacteria--no urine culture was reflected * White blood cell count 12.7--> 9.9-->8.7-->9.5. (4) Anxiety: Code(s): F41.9 - Anxiety disorder, unspecified Status: Acute Assessment and Plan: * Continue Wellbutrin * wellbutrin is not a good choice for anti anxiety tx as it could make anxiety worse- will need to f/u with pcp or psych for eval and other alternatives (5) Depression: Code(s): F32.A - Depression, unspecified Status: Acute Assessment and Plan: See above plan of care (6) Cerebral palsy: Code(s): G80.9 - Cerebral palsy, unspecified Status: Acute Assessment and Plan: Father is her caregiver and has been admitted to ICU due to illness. Deemed not a safe discharge as she can not care for herself. Patient states she has an Uncle who lives in [place] who is the closest relative that lives near her. She thinks she could stay with him until her father is better. * Care coordination consulted for safe discharge (7) Hypokalemia: Code(s): E87.6 - Hypokalemia Status: Acute Assessment and Plan: * Potassium 3.3. * Potassium chloride 40 meq PO x1. * Monitor labs. (8) Constipation: Code(s): K59.00 - Constipation, unspecified Status: Acute Assessment and Plan: * Encourage water intake. * Last BM per patient on 05/12. * Add Docusate 100 mg PO q 12 PRN and Miralax 17 gram PO daily PRN. Patient received a dose of both this morning. Subjective Date/time seen: 05/17/24 10:37 Interval history: Patient reports pain in abdomen is a 5 , frequent, and aching. Patient reports blood in urine. Denies chest pain, palpitations, headache, dizziness, nausea, or vomiting. Patient reports that she feels a little constipated and that her last bowel movement was 3/7. Patient reports drinking some apple juice but not much water. Review of Systems Review of Systems: All systems reviewed & are unremarkable except as noted in HPI and below Exam Const: General: no acute distress and uncomfortable Resp: Effort & Inspection: normal respiratory effort Auscultation: clear to auscultation bilaterally Cardio: Rate: regular rate Rhythm: regular rhythm GI: GI Palp: Yes Soft to palpation Auscultation: normal bowel sounds Neuro: Speech: normal speech Extrem: General: no pedal edema Psych: Mental Status: mental status grossly normal Other: flat affect, interactive Objective Data Vital Signs Vital Signs: Vital Signs - 24 hr 05/16/24 11:47 05/16/24 12:00 05/16/24 12:15 Temperature 97.7 F Pulse Rate 74 89 91 Respiratory Rate 10 L 13 11 L Blood Pressure 119/89 133/95 H 132/93 H Pulse Oximetry 100 100 99 Oxygen Delivery Simple Face Mask Simple Face Mask Simple Face Mask Oxygen Flow Rate 8 8 8 05/16/24 12:30 05/16/24 12:45 05/16/24 13:00 Temperature Pulse Rate 89 85 82 Respiratory Rate 11 L 10 L 10 L Blood Pressure 135/92 H 136/92 H 130/91 H Pulse Oximetry 98 95 95 Oxygen Delivery Room Air Room Air Room Air Oxygen Flow Rate 05/16/24 13:25 05/16/24 13:40 05/16/24 15:10 Temperature 97.0 F L 97.1 F L 97.7 F Pulse Rate 91 101 H 91 Respiratory Rate 18 18 16 Blood Pressure 130/85 134/93 H 138/88 Pulse Oximetry 97 98 97 Oxygen Delivery Oxygen Flow Rate 05/16/24 15:24 05/16/24 21:00 05/17/24 00:00 Temperature 97.3 F L 97.5 F L 97.1 F L Pulse Rate 102 H 104 H 111 H Respiratory Rate 16 18 20 Blood Pressure 112/81 132/74 133/65 Pulse Oximetry 99 97 98 Oxygen Delivery Oxygen Flow Rate 05/17/24 04:30 05/17/24 08:00 05/17/24 08:16 Temperature 97 F L 97.9 F Pulse Rate 102 H 91 Respiratory Rate 16 16 Blood Pressure 144/84 H 123/88 Pulse Oximetry 96 99 99 Oxygen Delivery Room Air Oxygen Flow Rate Intake/Output Intake/Output: Intake & Output 05/15/24 05/15/24 05/16/24 05/17/24 00:59 23:59 23:59 23:59 Intake Total 1000 1120 876.5 550 Output Total 200 600 300 Balance 1000 920 276.5 250 Meds/Results Medications: Active Medications Generic Name Dose Route Start Last Admin Trade Name Freq PRN Reason Stop Dose Admin Acetaminophen 650 mg 05/14/24 20:51 05/17/24 02:30 Acetaminophen 325 Mg Tablet PO 650 mg Q4H PRN Administration Mild Pain (1-3) or Fever Bupropion HCl 150 mg 05/15/24 09:00 05/17/24 08:19 Bupropion Hcl Xl (24 Hr) 150 Mg Tabcr PO 150 mg DAILY BERTHA Administration Ketorolac Tromethamine 15 mg 05/15/24 08:19 05/17/24 06:43 Ketorolac 15 Mg/Ml Vial (*Bkc) IV PUSH 15 mg Q6H PRN Administration Pain Rated 4-6 Ondansetron HCl 4 mg 05/14/24 20:51 05/17/24 06:43 Ondansetron Inj 4 Mg/2 Ml Vial IV PUSH 4 mg Q6H PRN Administration Nausea And Vomiting Prochlorperazine Maleate 5 mg 05/15/24 08:19 05/17/24 00:36 Prochlorperazine Maleate 5 Mg Tablet PO 5 mg Q6H PRN Administration Nausea And Vomiting Tamsulosin HCl 0.4 mg 05/15/24 09:00 05/17/24 08:19 Tamsulosin Hcl 0.4 Mg Capsule PO 0.4 mg QAM BERTHA Administration Radiology Results: ITS Impressions Abdomen/Pelvis CT 05/14/24 19:29 IMPRESSION: 5 mm left UPJ stone causing mild obstructive uropathy. Scattered areas of colonic wall edema may reflect infectious, inflammatory, or ischemic colitis. Abdomen X-Ray 05/15/24 08:27 IMPRESSION: 1. 4 mm stone in proximal left ureter. 2. 3 mm right kidney stone. Retrograde Pyelogram 05/16/24 13:10 IMPRESSION: 1. Left internal ureteral stent in expected position. Labs Labs: Laboratory Results - last 24 hr 05/17/24 05:56 WBC 9.5 RBC 3.97 L Hgb 12.2 Hct 36.8 L MCV 92.7 MCH 30.7 MCHC 33.2 RDW 11.7 Plt Count 165 MPV 11.3 H Immature Gran % (Auto) 0.4 Neut % (Auto) 58.5 Lymph % (Auto) 33.4 [place] % (Auto) 6.8 Eos % (Auto) 0.7 Baso % (Auto) 0.2 Lymph # (Auto) 3.17 [place] # (Auto) 0.7 H Eos # (Auto) 0.1 Baso # (Auto) 0.0 Abs Immat Gran (auto) 0.04 H Absolute Neuts (auto) 5.6 Absolute Nucleated RBC 0.000 Nucleated RBC % 0.0 Sodium 135 L Potassium 3.3 L Chloride 105 Carbon Dioxide 20 L Anion Gap 10 BUN 10 Creatinine 0.60 L Estim Creat Clear Calc 102 Estimated GFR > 60 Glucose 94 Calcium 9.1 Total Bilirubin 0.6 AST 20 ALT 17 Alkaline Phosphatase 80 Total Protein 6.0 L Albumin 3.9 Quality VTE Prophylaxis VTE prophylaxis: mechanical ordered
[2024-05-17] MEDS: polyethylene glycoL 3350 17 GM POWD.PACK PO (10:54)
[2024-05-17] MEDS: DOCUSATE SODIUM 100 MG CAPSULE PO ×2 (10:54→20:19)
[2024-05-17 16:30] VITALS: BP 140/85; PULSE 109; RESP 18; TEMP 35.8; O2SAT 96
[2024-05-17 21:10] VITALS: BP 125/79; PULSE 108; RESP 16; TEMP 36.9; O2SAT 97
[2024-05-18 06:00] VITALS: BP 137/89; PULSE 101; RESP 16; TEMP 36.4; O2SAT 98
[2024-05-18 06:06] LABS: Basophils Percent Auto 0.4 % (0.2-1.2); Eosinophils Absolute Auto 0.2 K/mm3 (0-0.3); Eosinophils Percent Auto 1.4 % (0-4.4); Hematocrit 42.5 % (37.0-47.0); Hemoglobin 13.8 g/dL (12.0-15.0); Immature Granulocyte Absolute 0.05 K/mm3 (0.00-0.031); Immature Granulocyte Percent A 0.5 % (0-0.5); Lymphocytes Absolute Auto 3.32 K/mm3 (0.9-3.2); Lymphocytes Percent Auto 30.9 % (18.3-44.2); Mean Corpuscular HGB Conc 32.5 g/dl (32-36); Mean Corpuscular Hemoglobin 30.3 pg (26-34); Mean Corpuscular Volume 93.4 fl (80-100); Mean Platelet Volume 11.6 fl (7.4-10.4); Monocytes Absolute Auto 0.7 K/mm3 (0.1-0.6); Monocytes Percent Auto 6.4 % (2.6-8.5); Neutrophils Absolute Auto 6.5 K/mm3 (1.3-6.7); Neutrophils Percent Auto 60.4 % (45.5-73.1); Platelet Count Result 216 k/mm3 (150-375); Red Blood Count 4.55 M/mm3 (4.2-5.4); Red Cell Distribution Width 11.8 % (11.5-14.5); White Blood Count 10.8 K/mm3 (4.5-10.0)
[2024-05-18 06:23] LABS: Alanine Aminotransferase 44 U/L (6-35); Albumin Level 4.9 g/dL (3.5-5.1); Alkaline Phosphatase 95 U/L (38-126); Anion Gap 15 mmol/L (4-12); Aspartate Amino Transferase 43 U/L (14-36); Bilirubin,Total 0.8 mg/dL (0.2-1.3); Blood Urea Nitrogen 11 mg/dL (7-17); Calcium 9.9 mg/dL (8.4-10.2); Carbon Dioxide 21 mmol/L (22-30); Chloride 104 mmol/L (98-107); Estimated CRCL calculation 89 ml/min; Estimated Glomerular Filt Rate > 60; Glucose 100 mg/dL (65-110); Potassium 3.9 mmol/L (3.4-5.0); Sodium 140 mmol/L (137-145)
--- NOTE | 2024-05-18 09:39 | P.DS_ITS ---
DS: Admitting Diagnosis Discharge Date 05/18/24 Admitting Diagnosis High Anion Gap Acidosis, Dehydration, Calculus of ureter, Anxiety, Depression, Cerebral Palsy DS: Discharge Diagnosis Discharge Diagnosis (1) High anion gap metabolic acidosis: Code(s): E87.29 - Other acidosis Status: Resolved Assessment and Plan: Secondary to nausea and vomiting--dehydration * Bicarb 20, anion gap 10 * Advanced diet as tolerated to a regular diet * Continue antiemetics, continue pain meds * Continue to trend labs (2) Dehydration: Code(s): E86.0 - Dehydration Status: Resolved Assessment and Plan: Reporting nausea, vomiting, abdominal pain secondary to ureterolithiasis * Patient given 1 L IV fluids while in the ED * Continue to trend electrolytes * potassium 3.3 today. Patient given Potassium Chloride 40 meq PO x1. * continue with supplementation. * Advance diet to regular diet as tolerated * Encourage water intake. (3) Ureterolithiasis: Code(s): N20.1 - Calculus of ureter Status: Acute Assessment and Plan: * CT of abdomen pelvis showed 5 mm left UPJ stone causing mild obstructive uropathy, scattered area of colonic wall edema representing possible infectious versus inflammatory versus ischemic colitis * Patient given 1 L of normal saline while in the ED * Urology was consulted * --> to OR 05/16/24--> 4.8 Taiwanese contour stent is then placed with the proximal end coiled in the renal pelvis and the distal in the bladder. Patient is taken recovery stable condition. Stent can be removed in 1-2 weeks time. * Patient started on Flomax * UA showed cloudy urine appearance, 3+ urine ketone, 3+ urine blood, trace leukocyte, greater than 100 urine RBC, rare urine bacteria--no urine culture was reflected * White blood cell count 12.7--> 9.9-->8.7-->9.5. 05/18/24: * Discharge to home today for uncle to care for until her father is discharged from the hospital. Follow up with Dr. Tesfyae in the office in 2-3 weeks for stent removal. (4) Anxiety: Code(s): F41.9 - Anxiety disorder, unspecified Status: Chronic Assessment and Plan: * Continue Wellbutrin * wellbutrin is not a good choice for anti anxiety tx as it could make anxiety worse- will need to f/u with pcp or psych for eval and other alternatives (5) Depression: Code(s): F32.A - Depression, unspecified Status: Acute Assessment and Plan: See above plan of care (6) Cerebral palsy: Code(s): G80.9 - Cerebral palsy, unspecified Status: Chronic Assessment and Plan: Father is her caregiver and has been admitted to ICU due to illness. Deemed not a safe discharge as she can not care for herself. Patient states she has an Uncle who lives in [place] who is the closest relative that lives near her. She thinks she could stay with him until her father is better. * Care coordination consulted for safe discharge 05/18/24: * I confirmed with Vivian in Care coordination that pt's uncle will be assuming care of her at this time upon discharge and she is ready for discharge today. (7) Hypokalemia: Code(s): E87.6 - Hypokalemia Status: Resolved Assessment and Plan: * Potassium 3.3. * Potassium chloride 40 meq PO x1. * Monitor labs. (8) Constipation: Code(s): K59.00 - Constipation, unspecified Status: Acute Assessment and Plan: * Encourage water intake. * Last BM per patient on 05/12. * Add Docusate 100 mg PO q 12 PRN and Miralax 17 gram PO daily PRN. Patient received a dose of both this morning. 05/18/24: * Pt receiving enema today prior to discharge. DS: Summary Hospital Course Reason for hospitalization: Anion gap acidosis and ureteral calculi Hospital Course: This is a 29-year-old female with a significant past medical history of cerebral palsy, anxiety, depression, left oophorectomy who presented to the hospital on 05/14/24 with complaints of abdominal pain and vomiting since that morning. She was accompanied by her father who is her public employment mediator however he was found to be ill himself and admitted to ICU here. Patient states that she started to have abdominal pain with associated nausea and vomiting on Wednesday and it persisted into today. She came in for further evaluation of her symptoms. Workup in the ER included an abdomen/pelvis CT which showed 5 mm left You PUJ stone causing mild obstructive uropathy, scattered area of colonic wall edema which may reflect infectious, inflammatory, or ischemic colitis. Initial labs showed a white blood cell count of 12.7, bicarb 21, anion gap 16, lipase was normal at 54. UA was obtained which showed cloudy urine appearance, 3+ urine ketone, 3+ urine blood, trace leukocyte, greater than 100 urine RBC, rare bacteria seen. Urine test was negative. Respiratory panel was negative for influenza A and B, RSV, COVID. Patient was given 1 L of normal saline, Reglan, Zofran, Benadryl, Dilaudid, Toradol, and a dose of Flomax while in the ED. She was going to be discharged however it was deemed unsafe due to the caregiver's illness and being admitted to ICU. Urology was consulted and on 05/16/24 she had Cystoscopy, left ureteroscopy with stone extraction and left stent placement performed. Pt is to follow up with Dr. Tesfaye in 2-3 weeks for stent removal. Care coordination has consulted and it is deemed safe to send pt home with her uncle given her father is still hospitalized here. Status at Discharge Cognitive/behavioral status at discharge: At baseline Functional status at discharge: independent ambulation Overall status at discharge: patient is back to baseline Time Spent with Patient Time attestation: Total time spent providing and/or coordinating discharge services: Time spent: Greater than 30 minutes Specific discharge activities: discharge, follow up Exam Narrative: General: In no acute distress, well nourished Head: atraumatic, no encephalopathy Eyes: PERRLA, sclera clear ENT: moist mucous membranes, nasal passages clear Neck: supple, no JVD, no adenopathy, trachea midline Cardiac: Normal S1 and S2. No murmur, gallops or friction rubs, peripheral pulses intact. Respiratory: Lungs clear to auscultation, no adventitious lung sounds, currently on room air Gastrointestinal: soft, non-distended, non-tender, normoactive bowel sounds. : voiding without difficulty. Extremities: moves all extremities well, no edema Skin: clean, dry, intact. No wounds or lesions. Neuro: Alert and oriented x4, cranial nerves intact, no neuro deficits. Psych: normal mood, flat affect, interactive DS: Data Data Completed and Pending Completed studies during hospitalization: ITS Impressions Abdomen/Pelvis CT 05/14/24 19:29 IMPRESSION: 5 mm left UPJ stone causing mild obstructive uropathy. Scattered areas of colonic wall edema may reflect infectious, inflammatory, or ischemic colitis. Abdomen X-Ray 05/15/24 08:27 IMPRESSION: 1. 4 mm stone in proximal left ureter. 2. 3 mm right kidney stone. Retrograde Pyelogram 05/16/24 13:10 IMPRESSION: 1. Left internal ureteral stent in expected position. Pending studies at discharge: Pending at discharge 05/16/24 11:36 Surgical [PTH] Routine Labs on day of discharge: Labs from last 24 hours 05/18/24 05:39 WBC 10.8 H RBC 4.55 Hgb 13.8 Hct 42.5 MCV 93.4 MCH 30.3 MCHC 32.5 RDW 11.8 Plt Count 216 MPV 11.6 H Immature Gran % (Auto) 0.5 Neut % (Auto) 60.4 Lymph % (Auto) 30.9 [place] % (Auto) 6.4 Eos % (Auto) 1.4 Baso % (Auto) 0.4 Lymph # (Auto) 3.32 H [place] # (Auto) 0.7 H Eos # (Auto) 0.2 Baso # (Auto) 0.0 Abs Immat Gran (auto) 0.05 H Absolute Neuts (auto) 6.5 Absolute Nucleated RBC 0.000 Nucleated RBC % 0.0 Sodium 140 Potassium 3.9 Chloride 104 Carbon Dioxide 21 L Anion Gap 15 H BUN 11 Creatinine 0.69 L Estim Creat Clear Calc 89 Estimated GFR > 60 Glucose 100 Calcium 9.9 Total Bilirubin 0.8 AST 43 H ALT 44 H Alkaline Phosphatase 95 Total Protein 8.0 Albumin 4.9 Discharge Plan Discharge Attending physician on discharge: Mallika Shelton Consulting providers: Claudio Rivera Discharging Clinician: Mallika Shelton Anticipated Discharge Date/Time: 05/18/24 09:47 Patient Disposition: Other Activity: as tolerated Diet: as tolerated Discharge Instructions: Keep follow up with Dr. Tesfaye and take all medications as ordered. Patient Instructions: Antibiotic Form Patient Language: Serbian Stand Alone Forms: General Discharge Information Follow-up/Referrals: Mauri Tesfaye MD [Physician] - Call for Appointment (follow up in 2 weeks) Natan Dorantes MD [Primary Care Provider] - Call for Appointment Discharge Medications: New tamsulosin [Flomax] 0.4 mg capsule 0.4 mg PO DAILY Qty: 14 0RF ketorolac 10 mg tablet 10 mg PO Q6H PRN (Reason: pain) Qty: 20 0RF Rx Instructions: maximum total duration of 5 days from all oral, intranasal, or parenteral formulations ondansetron 4 mg tablet,disintegrating 4 mg PO Q8H PRN (Reason: nausea and vomiting) Qty: 10 0RF docusate sodium 100 mg Capsule 100 mg PO Q12HR 60 Days Qty: 120 0RF Continued medroxyprogesterone 150 mg/mL suspension 150 mg IM [id number] bupropion HCl 150 mg tablet extended release 24 hr 150 mg PO DAILY Date of admission: 05/15/24 08:51 Primary Care Provider: Natan Dorantes Admitting Provider: Ulices Cardenas Attending physician on admission: Mallika Shelton Condition: Stable Quality If No VTE Prophylaxis Answer both mechanical and pharmacologic: Reason no mechanical VTE proph: low risk/not indicated Reason no pharmacologic proph: low risk/not indicated Hospitalist MIPS Heart Failure (Exclusion) Patient has history of Heart Transplant or Left Ventricular Assistive Device?: No IF YES, STOP HERE Heart Failure (Qualifier) Patient has current or prior documentation of LVEF less than or equal to 40%, or mod/servere depressed LVSF?: No IF NO, STOP HERE
[2024-05-18] MEDS: TAMSULOSIN HCL 0.4 MG CAPSULE PO (10:03)
[2024-05-18] MEDS: buPROPion HCL XL (24 HR) 150 MG TABCR PO (10:03)
[2024-05-18] MEDS: DOCUSATE SODIUM 100 MG CAPSULE PO (10:03)
[2024-05-18] MEDS: polyethylene glycoL 3350 17 GM POWD.PACK PO (10:04)
== END 2024-05-18 12:30 | disposition home or self-care (01) | DRG 660 ==
LOC: ANHED 20:30 → ANH3MEDSUR 21:39
PROVIDERS: Emergency Medicine; Nurse Practitioner Acute Care; Urology; Admitting Provider Internal Medicine; Emergency Provider Emergency Medicine; PCP Family Medicine Adolescent Medicine; Visit Provider Nurse Practitioner Adult Health
PROC: 0T778DZ Dilation of Left Ureter with Intraluminal Device, Via Natural or Artificial Opening Endoscopic (ICD-10-PCS; CPT 52352; principal; 2024-05-16 10:30)
DX: N20.1 Calculus of ureter (principal); E87.29 Other acidosis; N13.5 Crossing vessel and stricture of ureter without hydronephrosis; E86.0 Dehydration; F41.9 Anxiety disorder, unspecified; F32.A Depression, unspecified; G80.9 Cerebral palsy, unspecified; E87.6 Hypokalemia; K59.00 Constipation, unspecified
CPT/HCPCS: 36415; 74018; 74177; 74420; 80053; 81001; 81025; 82365; 83690; 83735; 85025; 87637; 88300; 96361; 96374; 96375; 99285; A9270; C1769; C2617; G0378; J0690; J1100; J1171; J1200; J1885; J2003; J2250; J2405; J2704; J2765; J3010; J7030; J7120; Q9966; Q9967

== ENCOUNTER 2024-06-16 00:33 | Day surgery (SDC) | payer MEDICARE, SELFPAY ==
[2024-06-15 08:20] VITALS: BMI 22.3
--- NOTE | 2024-06-15 08:22 | PC.NURSE ---
Report to the Outpatient Waiting Room, entrance under the green pavilion located off [facility], at time _1130_ on date _[id number]_. Planned Procedure Time: _130pm_.? Time changes happen often and if your time is changed the preop area will call you the afternoon before. - You and your visitor will be asked to self-screen and do not enter if you have any COVID symptoms. Please call surgeon if you need to reschedule. - A mask is optional within the hospital at this time. Patients may have clear liquids (water, carbonated beverages, clear teas, apple juice) until 3 hours prior to surgery with a maximum of 20 ounces. - No food from midnight until time of surgery and no smoking, or chewing tobacco (or any form of nicotine). No chewing gum, candy or mints. Take only the following medications with a SIP of water on the morning of surgery: __Bupropion and if needed Tylenol DO NOT STOP ANY OF YOUR OTHER PRESCRIPTION MEDICATIONS PRIOR TO SURGERY EXCEPT THE FOLLOWING Hold all vitamins and supplements for 3 days per anesthesiologist. Medications to discontinue per physician Date to take last dose Please no make-up, nail tajik, hairspray, perfume, deodorant, or body powder the day of surgery.? No jewelry (including any body piercings) or valuables the day of surgery, leave them at home.? Please take a shower or bath the night before, or the morning of, surgery with an antibacterial soap.? Wear comfortable, loose fitting clothing.? - Jewelry must be removed prior to entering the operating room.? Rings and piercings that are not removed may be cut off. - The hospital will not accept responsibility for valuables.? - Please leave all valuables, including medications, at home the day of surgery. If you are going home after surgery, a licensed laundry route driver must drive you home.? - NO public transportation without another adult if you receive anesthesia. - We recommend that an adult stay with you for 24 hours following discharge. - We also recommend that you do not drive, make important decision, drink alcoholic beverages, or take any drugs that were not prescribed by your health care provider for at least 24 hours after your discharge time. Follow any additional instructions given to you from your surgeon. Telephone instructions given to __Kelly__and asked if any additional questions and then verbalized understanding. Patient advised to call surgeon office or pre surgery nurse liaison [phone] if any additional questions.
--- OUTSIDE RECORDS SUMMARY | 2024-06-16 00:36 | XMS_ITS | Continuity of Care Document ---
Author Organization [facility] Address [address] [place] [address] Phone Care Team Providers Care Sap Business Analyst Name Role Phone Cipriano Meyer Unavailable Unavailable Advance Directives Directive Yes / No Effective Date File Name No Information Encounters Encounter Description Practice Location Reason(s) For Visit Diagnoses Date Provider Providers Copied on Encounter [facility], [address] [place] [address] [address], [place], [place], [id number], [place] tel:[phone] [facility] No Information 0 1-200 4 Doisy Edward. [address] , [address], [place], [address], [place]. tel:[phone] Family History Family Member Type Diagnosis Age At Onset No Information Payers Payer name Insurance type Covered libertarian ID Authoriza tion(s) No Information Social History [...]
--- NOTE | 2024-06-16 06:25 | WPDHPUPDATE1 ---
History and Physical Update Update Date/Time: 06/16/24 06:25 History and Physical has been reviewed, including an updated exam of the patient. There are NO changes in the patient's condition. Risks, benefits, and alternatives have been discussed and questions answered. Patient agrees to proceed with procedure.
[2024-06-16 12:10] VITALS: BP 141/88; PULSE 68; RESP 18; TEMP 36.8; O2SAT 100
[2024-06-16 12:13] VITALS: BMI 22.6
--- NOTE | 2024-06-16 12:37 | P.PNAN_ITS ---
Anes - Initial Pre Proc Eval Procedure: Operation Date: 06/16/24 13:30 Proposed Procedures p Cystoscopy with Left Ureteral Stent Removal - Iraj Sánchez MD Date/Time: 06/16/24 12:37 Surgeon: Iraj Sánchez MD Pre Op Diagnosis: left stent removal Patient Data Age: 29 Gender: F Height: 1.63 m Weight: 59.8 kg Last Vital Signs Temp 36.8 C 06/16/24 12:10 Pulse 68 06/16/24 12:10 Resp 18 06/16/24 12:10 BP 141/88 H 06/16/24 12:10 Pulse Ox 100 06/16/24 12:10 O2 Del Method Room Air 06/16/24 12:10 Allergies Allergy/AdvReac Type Severity Reaction Status Date / Time chlorhexidine Allergy Intermediate RASH Verified 06/16/24 12:08 Sulfa (Sulfonamide Allergy Mild HIVES Verified 06/16/24 12:08 Antibiotics) oxycodone AdvReac Intermediate Vomiting Verified 06/16/24 12:08 Home Medications ?Medication ?Instructions ?Recorded ?Confirmed ?Type bupropion HCl 150 mg 24 hr tablet, 150 mg PO DAILY 06/15/23 06/16/24 History extended release medroxyprogesterone 150 mg/mL 150 mg IM [id number] 06/15/23 06/15/24 History intramuscular suspension ondansetron 4 mg disintegrating 4 mg PO Q8H PRN nausea and 05/14/24 06/15/24 Rx tablet vomiting #10 tabs tamsulosin 0.4 mg capsule (Flomax) 0.4 mg PO DAILY #14 caps 05/14/24 06/15/24 Rx docusate sodium 100 mg capsule 100 mg PO Q12HR 60 days #120 caps 05/18/24 06/15/24 Rx acetaminophen 500 mg tablet 500 mg PO Q6H PRN pain 06/15/24 06/15/24 History Laboratory Tests 06/16/24 12:02 Beta HCG, Quant Pending Patient hx anesthesia problems: none Family hx anesthesia problems: none Results Review: All pre-operative results and documents have been reviewed as part of the pre- operative evaluation. 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 Anxiety Depression Surgical History Surgical History H/O oophorectomy Family History Family History Father Asthma Social History Social History Smoking status: Never smoker Alcohol intake: never Substance use: never Substance use type: does not use Do You Feel Safe in your Home?: Yes Lack of Transportation: No Lack of Food: Never True Current Housing: I Have Housing Concerned About Future Housing: No Difficulty Paying Gas/Electric Bills: No Difficulty Paying for Meds: No Currently Unemployed: No Education: High School Diploma/GED Difficulty w/ Childcare or Family Care: No Living arrangements: with family Spiritual care concerns: No Anes - Eval Final PreProcedure Day of Procedure 06/16/24 12:37 Patient weight: normal Heart: regular rate and rhythm Lungs: clear to auscultation Airway: Mallampati scale class III Neurological: alert and oriented Last oral intake: >/= 8 hours ASA classification: III Emergent: no Anesthetic plan: proceed Anesthesia type and monitoring: general LMA and standard monitoring Results Review: All pre-operative results and documents have been reviewed as part of the pre- operative evaluation. Informed Consent: The patient's anesthetic plan and its attendant risks and benefits were discussed with the patient/family/POA. Questions were solicited and answers provided to the satisfaction of the patient/family/POA.
[2024-06-16 12:44] LABS: Beta HCG Quantitative < 2.39 mIU/ML
--- NOTE | 2024-06-16 13:46 | P.HP_ITS ---
History of Present Illness History of Present Illness Consent: Risks, benefits, and alternatives have been discussed and questions answered. Patient agrees to proceed with procedure. Chief complaint: left stent removal Narrative: Suzanna Rod is a 29 year old female who is status post ureteroscopy with extraction of a 4 mm stone several weeks ago. 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 Anxiety Depression Surgical History Surgical History H/O oophorectomy Family History Family History Father Asthma Social History Social History Smoking status: Never smoker Alcohol intake: never Substance use: never Substance use type: does not use Do You Feel Safe in your Home?: Yes Lack of Transportation: No Lack of Food: Never True Current Housing: I Have Housing Concerned About Future Housing: No Difficulty Paying Gas/Electric Bills: No Difficulty Paying for Meds: No Currently Unemployed: No Education: High School Diploma/GED Difficulty w/ Childcare or Family Care: No Living arrangements: with family Spiritual care concerns: No Meds Home Medications and Allergies Home Medications ?Medication ?Instructions ?Recorded ?Confirmed ?Type bupropion HCl 150 mg 24 hr tablet, 150 mg PO DAILY 06/15/23 06/16/24 History extended release medroxyprogesterone 150 mg/mL 150 mg IM [id number] 06/15/23 06/15/24 History intramuscular suspension ondansetron 4 mg disintegrating 4 mg PO Q8H PRN nausea and 05/14/24 06/15/24 Rx tablet vomiting #10 tabs tamsulosin 0.4 mg capsule (Flomax) 0.4 mg PO DAILY #14 caps 05/14/24 06/15/24 Rx docusate sodium 100 mg capsule 100 mg PO Q12HR 60 days #120 caps 05/18/24 06/15/24 Rx acetaminophen 500 mg tablet 500 mg PO Q6H PRN pain 06/15/24 06/15/24 History Allergies Allergy/AdvReac Type Severity Reaction Status Date / Time chlorhexidine Allergy Intermediate RASH Verified 06/16/24 12:08 Sulfa (Sulfonamide Allergy Mild HIVES Verified 06/16/24 12:08 Antibiotics) oxycodone AdvReac Intermediate Vomiting Verified 06/16/24 12:08 Vital Signs Vital Signs - 24 hr 06/16/24 12:10 Temperature 98.2 F Pulse Rate 68 Respiratory Rate 18 Blood Pressure 141/88 H Pulse Oximetry 100 Oxygen Delivery Room Air Exam Const: General: no acute distress Resp: Effort & Inspection: normal respiratory effort GI: Inspection: non-distended GI Palp: No abdominal tenderness and No Guarding due to palpation present (GI) Auscultation: normal bowel sounds Assessment and Plan Assessment and plan (1) Ureterolithiasis: Code(s): N20.1 - Calculus of ureter Status: Acute Assessment and Plan: * Cystoscopy left ureteral stent removal
[2024-06-16 13:55] VITALS: BP 120/71; PULSE 87; RESP 14; O2SAT 99
[2024-06-16] MEDS: LACTATED RINGERS 1,000 ML 30 ML IV CONT (13:55)
[2024-06-16 14:25] VITALS: BP 117/77; PULSE 91; RESP 14; O2SAT 100
--- NOTE | 2024-06-16 14:29 | W.PM.PROC2 ---
Procedure Note - Detailed Date of Procedure 06/16/24 Pre-op Diagnosis left stent removal Post-op Diagnosis Same Procedure Performed Cystoscopy, left ureteral stent removal Surgeon Iraj Sánchez MD Anesthesia General Description of Procedure Patient brought the operative suite she was prepped draped in routine sterile fashion while in a frog-leg position. Cystoscopy was undertaken with a 16 F flexible cystoscope. The tip of the indwelling stent is grasped and it is extracted with ease. Complications No immediate complications Disposition PACU
[2024-06-16 14:55] VITALS: BP 125/86; PULSE 101; RESP 15
== END 2024-06-16 15:07 | disposition home or self-care (01) ==
PROVIDERS: PCP Family Medicine Adolescent Medicine; Visit Provider Urology
PROC: (CPT 52310; principal; 2024-06-16 13:30)
DX: Z46.6 Encounter for fitting and adjustment of urinary device (principal); Z87.442 Personal history of urinary calculi; G80.9 Cerebral palsy, unspecified
CPT/HCPCS: 52310; 36415; 84702; J2003; J2704; J7120

== ENCOUNTER 2024-11-19 11:23 | Emergency (ER) | payer MEDICARE, SELFPAY ==
--- NOTE | ~2024-11-19 | CT_ITS ---
EXAMINATION: CT abdomen pelvis wo con, 11/19/2024 14:15 CDT HISTORY: right flank pain COMPARISON: No comparisons available. TECHNIQUE: CT scan of the abdomen and pelvis was performed without IV contrast. One or more of the following dose reduction techniques were used: automated exposure control, adjustment of the mA and/or kV according to patient size, use of iterative reconstruction technique. Unless otherwise stated, incidental findings do not require dedicated follow up imaging FINDINGS: CT abdomen: LUNG BASES: The lung bases are clear. The visualized portions of the heart and pericardium are unremarkable. LIVER: Unremarkable, liver contours intact, no lesions. SPLEEN: Unremarkable, no splenomegaly. KIDNEYS: Right Kidney: Mild right hydronephrosis and hydroureter due to an obstructing mid ureteral calculus measuring 2 x 3 x 2 mm. Left Kidney: Unremarkable. No calculi. No hydronephrosis ADRENAL GLANDS: Unremarkable. PANCREAS: Unremarkable. GALLBLADDER/BILIARY: Unremarkable. No biliary dilatation. STOMACH AND ESOPHAGUS: Moderate hiatal hernia. BOWEL/MESENTERY: Moderate fecal content throughout the large bowel with a focal area of narrowing within the sigmoid colon which may relate to spasm An obstructing sigmoid colon lesion is not excluded, the segment of bowel involvement measures 2 cm. There is dilatation of the sigmoid colon proximal to this point with moderate fecal content throughout the remaining large bowel. Appendix not identified. Mesentery normal. No dilated small bowel loops. ADENOPATHY/RETROPERITONEUM: No lymphadenopathy. AORTA/VASCULATURE: Normal caliber aorta. FREE FLUID OR FREE AIR: None. CT pelvis: SOLID ORGANS/REPRODUCTIVE: Unremarkable. BLADDER: Within normal limits. OSSEOUS STRUCTURES: No acute osseous abnormality.No suspicious lesions. OVERLYING SOFT TISSUES: Unremarkable. IMPRESSION: 1. Right-sided obstructive uropathy 2. Possible sigmoid colon lesion. Colonoscopy recommended Reviewed, dictated and finalized at location A.
[2024-11-19 11:31] VITALS: BP 127/82; PULSE 76; RESP 22; TEMP 36.4; O2SAT 100
[2024-11-19] MEDS: ONDANSETRON INJ 4 MG/2 ML VIAL IV PUSH (12:09)
[2024-11-19] MEDS: SODIUM CHLORIDE 0.9% IV 1,000 ML 999 ML IV CONT (12:09)
[2024-11-19 12:10] LABS: Hematocrit 43.5 % (37.0-47.0); Hemoglobin 14.2 g/dL (12.0-15.0); Immature Granulocyte Percent A 0.5 % (0-0.5); Lymphocytes Absolute Auto 2.67 K/mm3 (0.9-3.2); Mean Corpuscular HGB Conc 32.6 g/dl (32-36); Mean Corpuscular Hemoglobin 30.1 pg (26-34); Mean Corpuscular Volume 92.4 fl (80-100); Nucleated Red Blood Cells Absolute Auto 0.000 K/mm3 (0.0-0.012); Nucleated Red Blood Cells Perc 0.0 % (0.0-0.2); Platelet Count Result 219 k/mm3 (150-375); Red Blood Count 4.71 M/mm3 (4.2-5.4); White Blood Count 15.8 K/mm3 (4.5-10.0)
[2024-11-19 12:20] LABS: Alanine Aminotransferase 27 U/L (6-35); Albumin Level 4.7 g/dL (3.5-5.1); Alkaline Phosphatase 124 U/L (38-126); Anion Gap 12 mmol/L (4-12); Aspartate Amino Transferase 27 U/L (14-36); Bilirubin,Total 0.4 mg/dL (0.2-1.3); Blood Urea Nitrogen 14 mg/dL (7-17); Calcium 9.5 mg/dL (8.4-10.2); Carbon Dioxide 21 mmol/L (22-30); Chloride 108 mmol/L (98-107); Estimated CRCL calculation 81 ml/min; Estimated Glomerular Filt Rate > 60; Glucose 109 mg/dL (65-110); Lipase 96 U/L (23-300); Potassium 3.8 mmol/L (3.4-5.0); Sodium 141 mmol/L (137-145); Total Protein 7.9 g/dL (6.3-8.2)
--- NOTE | 2024-11-19 12:30 | PC.NURSE ---
Pt. states she does not have to urinate at this time. Fluids infusing. Pt. will let RN know when she can go.
[2024-11-19] MEDS: MORPHINE SULFATE (*CRX) 4 MG/ML INJ IV PUSH (12:31)
[2024-11-19 12:32] VITALS: BP 131/92; PULSE 79; RESP 16; O2SAT 100
[2024-11-19 14:05] LABS: BEDSIDEPREGUCG Negative (Negative)
[2024-11-19 14:36] LABS: Add Urine Microscopic? YES; Appearance Urine Turbid (Clear); Glucose Urine UA Negative (Negative); Leukocyte Esterase Ur 2+ LEU/UL (Negative); Need Manual Microscopic Reviewed; Nitrate Urine Negative (Negative); Non Pathogenic Casts 0-2; Specific Grav Ur 1.018 (1.001-1.035)
[2024-11-19] MEDS: KETOROLAC 30 MG/ML VIAL (*BKC) IV PUSH (14:58)
[2024-11-19 15:03] VITALS: BP 137/85; PULSE 75; RESP 16; O2SAT 100
--- NOTE | 2024-11-19 15:16 | ED.ABDPAIN ---
HPI - Abdominal Pain General Chief Complaint: Abdominal Pain Stated Complaint: Abd pain, N/V since x 2-3 days Time Seen by Provider: 11/19/24 11:31 History of Present Illness HPI narrative: Patient is a 29-year-old female who presents to the ER with abdominal pain. Intermittent over the last couple days but worsening overnight. Right-sided. Cramping. Associated with vomiting. No urinary frequency/urgency/dysuria. Has history of kidney stones and this feels similar. Related Data Home Medications ?Medication ?Instructions ?Recorded ?Confirmed ?Last Taken ?Type bupropion HCl 150 mg 24 hr tablet, 150 mg PO DAILY 06/15/23 06/16/24 06/16/24 History extended release medroxyprogesterone 150 mg/mL 150 mg IM [id number] 06/15/23 06/15/24 05/08/24 History intramuscular suspension acetaminophen 500 mg tablet 500 mg PO Q6H PRN pain 06/15/24 06/15/24 Unknown History Allergies Allergy/AdvReac Type Severity Reaction Status Date / Time chlorhexidine Allergy Intermediate RASH Verified 11/19/24 12:07 Sulfa (Sulfonamide Allergy Mild HIVES Verified 11/19/24 12:07 Antibiotics) oxycodone AdvReac Intermediate Vomiting Verified 11/19/24 12:07 Review of Systems Review of Systems: All systems reviewed & are unremarkable except as noted in HPI and below Constitutional: Constitutional: Reports no additional constitutional complaints Cardiovascular: Cardiovascular: Reports no additional cardiovascular complaints Respiratory: Respiratory: Reports no additional respiratory complaints Gastrointestinal: Gastrointestinal: Reports no additional gastrointestinal complaints Genitourinary: Genitourinary: Reports no additional female genitourinary complaints [facility] Past Medical History Medical History Cerebral palsy 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 Anxiety Depression Surgical History Surgical History H/O oophorectomy Family History Family History Father Asthma Social History Social History Smoking status: Never smoker Alcohol intake: never Substance use: never Substance use type: does not use Do You Feel Safe in your Home?: Yes Lack of Transportation: No Lack of Food: Never True Current Housing: I Have Housing Concerned About Future Housing: No Difficulty Paying Gas/Electric Bills: No Difficulty Paying for Meds: No Currently Unemployed: No Education: High School Diploma/GED Difficulty w/ Childcare or Family Care: No Living arrangements: with family Spiritual care concerns: No Exam Narrative: GENERAL: Well-appearing, well-nourished, and in no acute distress. HEAD: Normocephalic, atraumatic. ENT: Mucous membranes moist. CHEST: Clear to auscultation. No respiratory distress. HEART: Regular rate and rhythm. Normal peripheral pulses. ABDOMEN: Soft, nontender, nondistended. EXTREMITIES: Normal range of motion. No edema. SKIN: Warm, dry, no rash. NEURO: Alert and oriented x3. PSYCH: Normal mood and affect. Course Course Emergency Course: Patient received morphine and Toradol. Discussed CT scan and need for f/u with GI. Spoke with urology, they will see the pt soon and would like the urine sent for culture. Patient will be d/c with cephalexin. No family history of colon cancer the image. Vital Signs Vital signs: Vital Signs Temperature 97.6 F 11/19/24 11:31 Pulse Rate 76 11/19/24 11:31 Respiratory Rate 22 H 11/19/24 11:31 Blood Pressure 127/82 11/19/24 11:31 Pulse Oximetry 100 11/19/24 11:31 Oxygen Delivery Room Air 11/19/24 11:31 Temperature 97.6 F 11/19/24 11:31 Pulse Rate 75 11/19/24 15:03 Respiratory Rate 16 11/19/24 15:03 Blood Pressure 137/85 11/19/24 15:03 Pulse Oximetry 100 11/19/24 15:03 Oxygen Delivery Room Air 11/19/24 11:31 MDM - Abdominal Pain Lab Data 11/19/24 12:04 11/19/24 12:04 Labs: Lab Results 11/19/24 11/19/24 11/19/24 Range/Units 12:04 13:57 14:01 WBC 15.8 H (4.5-10.0) K/mm3 RBC 4.71 (4.2-5.4) M/mm3 Hgb 14.2 (12.0-15.0) g/dL Hct 43.5 (37.0-47.0) % MCV 92.4 (80-100) fl MCH 30.1 (26-34) pg MCHC 32.6 (32-36) g/dl RDW 12.3 (11.5-14.5) % Plt Count 219 (150-375) k/mm3 MPV 11.4 H (7.4-10.4) fl Immature Gran % (Auto) 0.5 (0-0.5) % Neut % (Auto) 77.4 H (45.5-73.1) % Lymph % (Auto) 17.0 L (18.3-44.2) % [place] % (Auto) 4.3 (2.6-8.5) % Eos % (Auto) 0.5 (0-4.4) % Baso % (Auto) 0.3 (0.2-1.2) % Lymph # (Auto) 2.67 (0.9-3.2) K/mm3 [place] # (Auto) 0.7 H (0.1-0.6) K/mm3 Eos # (Auto) 0.1 (0-0.3) K/mm3 Baso # (Auto) 0.1 (0.0-0.1) K/mm3 Abs Immat Gran (auto) 0.08 H (0.00-0.031) K/mm3 Absolute Neuts (auto) 12.2 H (1.3-6.7) K/mm3 Absolute Nucleated RBC 0.000 (0.0-0.012) K/mm3 Nucleated RBC % 0.0 (0.0-0.2) % Sodium 141 (137-145) mmol/L Potassium 3.8 (3.4-5.0) mmol/L Chloride 108 H (98-107) mmol/L Carbon Dioxide 21 L (22-30) mmol/L Anion Gap 12 (4-12) mmol/L BUN 14 (7-17) mg/dL Creatinine 0.77 (0.7-1.0) mg/dL Estim Creat Clear Calc 81 ml/min Estimated GFR > 60 (59 - ) Glucose 109 (65-110) mg/dL Calcium 9.5 (8.4-10.2) mg/dL Total Bilirubin 0.4 (0.2-1.3) mg/dL AST 27 (14-36) U/L ALT 27 (6-35) U/L Alkaline Phosphatase 124 (38-126) U/L Total Protein 7.9 (6.3-8.2) g/dL Albumin 4.7 (3.5-5.1) g/dL Lipase 96 (23-300) U/L Urine Color Yellow (Yellow) Urine Appearance Turbid H (Clear) Urine pH 8.0 (5.0-9.0) Ur Specific [place] 1.018 (1.001-1.035) Urine Protein Negative (Negative) mg/dL Urine Glucose (UA) Negative (Negative) mg/dL Urine Ketones Trace H (Negative) mg/dL Ur Blood (Man) 1+ H (Negative) Urine Nitrate Negative (Negative) Urine Bilirubin Negative (Negative) Urine Urobilinogen 1.0 (<2.0) mg/dL Add Ur Microanalysis Reviewed Leukocyte Esterase Rfl 2+ H (Negative) VICKI/UL Urine RBC 21-50 H (0-2) /hpf Urine WBC 11-20 H (0-3) /hpf Ur Squamous Epith Cells Few (Few) /hpf Urine Bacteria 1+ H /hpf Urine Casts 0-2 POC Urine HCG, Qual Negative (Negative) Imaging Data Radiologist's impression: ITS Impressions Abdomen/Pelvis CT 11/19/24 14:34 IMPRESSION: 1. Right-sided obstructive uropathy 2. Possible sigmoid colon lesion. Colonoscopy recommended Discharge Plan Discharge Clinical Impression: Ureterolithiasis, Colonic stricture Patient Disposition: Home Condition: Stable Instructions: Ureteral Stones (ED) Additional Instructions: Return to the emergency department if you develop severe abdominal pain, severe nausea and vomiting to the point where you are unable to keep down fluids, if you develop chest pain or difficulty breathing, blood in your stool, dizziness or fainting, or if you develop any other new or concerning symptoms as these could be signs of more serious medical illness. Try to stay well hydrated. Your found to have a stone in your right ureter. You will need to see the urologist for this. There is also found that your colon is narrow and is felt you need a colonoscopy to rule out a colon mass. You have been given the name and number of a GI physician. Patient Language: Amharic Prescriptions: New hydrocodone-acetaminophen 5-325 mg tablet 1 tablet PO Q6H PRN (Reason: pain) Qty: 14 0RF tamsulosin 0.4 mg capsule 0.4 mg PO DAILY Qty: 7 0RF ondansetron 4 mg tablet,disintegrating 4 mg PO Q6H PRN (Reason: nausea and vomiting) Qty: 10 0RF cephalexin 500 mg capsule 500 mg PO Q12H Qty: 14 0RF docusate sodium [Colace] 100 mg capsule 100 mg PO BID Qty: 20 0RF No Action medroxyprogesterone 150 mg/mL suspension 150 mg IM [id number] bupropion HCl 150 mg tablet extended release 24 hr 150 mg PO DAILY tamsulosin [Flomax] 0.4 mg capsule 0.4 mg PO DAILY Qty: 14 0RF ondansetron 4 mg tablet,disintegrating 4 mg PO Q8H PRN (Reason: nausea and vomiting) Qty: 10 0RF docusate sodium 100 mg Capsule 100 mg PO Q12HR 60 Days Qty: 120 0RF Patient Comments: Takes as needed. acetaminophen 500 mg tablet 500 mg PO Q6H PRN (Reason: pain) Follow-up/Referrals: Rei Fu MD [Physician, Urology] - 1 Week Wilfredo Salazar MD [Physician, Gastroenterology] - 1 Week Natan Dorantes MD [Primary Care Provider, Family Practice]
[2024-11-19 16:28] VITALS: BP 124/81; PULSE 81; RESP 18; O2SAT 100
== END 2024-11-19 16:30 | disposition home or self-care (01) ==
PROVIDERS: Emergency Provider Emergency Medicine; PCP Family Medicine Adolescent Medicine
DX: N20.1 Calculus of ureter (principal); K56.699 Other intestinal obstruction unspecified as to partial versus complete obstruction; G80.9 Cerebral palsy, unspecified; F41.9 Anxiety disorder, unspecified; F32.A Depression, unspecified
CPT/HCPCS: 36415; 74176; 80053; 81001; 81025; 83690; 85025; 87086; 96361; 96374; 96375; 99284; J1885; J2270; J2405; J7030